=== PATIENT | female | born 1955 | race Hispanic/Latino ===

== ENCOUNTER 2017-06-22 10:05 | Inpatient (IN) | payer BC, OTHER ==
[2017-06-22] VITALS (8 sets, daily range): BP systolic 94–130; BP diastolic 59–75
[2017-06-22 10:30] LABS: APPEARANCE,URINE Clear (CLEAR); BILIRUBIN,URINE Negative (NEGATIVE); COLOR,URINE Yellow (YELLOW); GLUCOSE, URINE (UA) Negative (NEGATIVE); KETONES,URINE Negative (NEGATIVE); LEUKOCYTE ESTERASE ,URINE Trace (NEGATIVE); NITRATE,URINE Negative (NEGATIVE); OCCULT BLOOD,URINE Moderate (NEGATIVE); PROTEIN,URINE POS 2+ (NEGATIVE); UROBILINOGEN,URINE 0.2 mg/dL (0.2-1.0)
[2017-06-22] MEDS ORDERED: SODIUM CHLORIDE 0.9% 1000ML 1,000 ML IV ONE (10:44)
[2017-06-22] MEDS ORDERED: ACETAMINOPHEN 325 MG TAB ONE (10:45)
[2017-06-22] MEDS ORDERED: AMPICILLIN SODIUM/SULBACTAM NA 1.5GM VIAL ONE (10:45)
[2017-06-22] MEDS ORDERED: VANCOMYCIN 1GM+NS 250ML 250 ML IV ONE (10:45)
[2017-06-22 10:48] LABS: HEMATOCRIT 21.2 % (36-48); MEAN CORPUSCULAR HEMOGLOBIN 29.3 pg (27.0-33.0); MEAN CORPUSCULAR HGB CONC 32.2 g/dL (32.0-36.0); MEAN CORPUSCULAR VOLUME 90.8 fL (79-99); PLATELET COUNT (AUTO) 322 K/uL (130-400); RED BLOOD CELL COUNT(AUTO) 2.34 MIL/uL (4.00-5.50); WHITE BLOOD COUNT (AUTO) 25.9 K/uL (4.8-10.8)
[2017-06-22 11:05] LABS: BACTERIA,URINE Rare /HPF (None Seen); MUCUS,URINE Rare LPF (None Seen); SQUAMOUS EPITHELIAL CELL,UR Rare /LPF (0-2)
[2017-06-22 11:20] LABS: BILIRUBIN,TOTAL 0.3 mg/dL (0.2-1.0); CREATINE KINASE MB 8.7 ng/mL (0.5-3.6); POTASSIUM 4.5 mmol/L (3.5-5.1)
[2017-06-22 11:22] LABS: CREATININE 12.9 mg/dL (0.5-1.5); TROPONIN I 1.46 ng/mL (0.00-0.06)
[2017-06-22 11:30] LABS: INR 1.16 (0.85-1.15); PARTIAL THROMBOPLASTIN TIME 31.2 SEC (26.3-35.5); PROTHROMBIN TIME 12.1 SEC (9.6-11.6)
[2017-06-22 11:35] LABS: BASOPHILS % (MANUAL) 1 % (0-2); EOSINOPHILS % (MANUAL) 1 % (1-6); LYMPHOCYTES % (MANUAL) 2 % (22-44); MAN.DIFF COMMENT-IMPRESSION MANUAL DIFFERENTIAL; PLATELET MORPHOLOGY COMMENT ADEQUATE; SEGMENTED NEUTROPHILS % 96 % (40-70)
[2017-06-22] MEDS ORDERED: SODIUM CHLORIDE 0.9% 1000ML 2,000 ML IV ONE (11:59)
[2017-06-22] MEDS ORDERED: ASPIRIN 81MG TAB.CHEW ONE (12:00)
[2017-06-22] MEDS ORDERED: MIDAZOLAM HCL 1 MG/ML 2ML VIAL ONE (12:54)
[2017-06-22] MEDS ORDERED: PROPOFOL 1000 MG/100 ML 100 ML IV ONE ×3 (13:02→23:52)
[2017-06-22] MEDS ORDERED: FENTANYL CITRATE PF 50 MCG/1 ML 2ML VIAL ONE (14:10)
[2017-06-22] MEDS ORDERED: SODIUM BICARB 50MEQ 50ML VIAL ONE (15:09)
[2017-06-22 15:19] LABS: ABG BASE EXCESS -23.5 mmol/L (-2.0-3.0); ABG HCO3 5.9 mmol/L (21.0-28.0); ABG OXYGEN SATURATION 99.3 % (95.0-99.0); ABG PCO2 23 mmHg (32-45)
[2017-06-22] MEDS ORDERED: EPOETIN ALFA 10,000 UNIT/ML VIAL SQ ONE (17:00)
[2017-06-22] MEDS ORDERED: SODIUM BICARB 8.4% 50ML SYRING 150 MEQ in DEXTROSE 5%-WATER 1,000 ML IV SCH (17:00)
[2017-06-22] MEDS: ZOSYN 3.375GM+NS 50ML 50 ML IV SCH (17:08)
[2017-06-22] MEDS: SODIUM BICARB 8.4% 50ML SYRING 150 MEQ in DEXTROSE 5%-WATER 1,000 ML IVP SCH (17:15)
[2017-06-22] MEDS ORDERED: LINEZOLID 600 MG/ISO-OSM 300 ML IV SCH (18:15)
[2017-06-22] MEDS ORDERED: LINEZOLID 600 MG/ISO-OSM 300 ML IV ONE (22:15)
[2017-06-23] VITALS (21 sets, daily range): BP systolic 97–154; BP diastolic 52–83
[2017-06-23] MEDS: SODIUM BICARB 8.4% 50ML SYRING 150 MEQ in DEXTROSE 5%-WATER 1,000 ML IVP SCH ×2 (02:31→14:23)
[2017-06-23 04:39] LABS: CARBON DIOXIDE 14 mmol/L (21-32); CHLORIDE 109 mmol/L (101-111); GLOMERULAR FILTR. RATE CALC 4 mL/min (>60); GLUCOSE,RANDOM 165 mg/dL (70-105); PHOSPHORUS 8.6 mg/dL (2.5-4.9); POTASSIUM 3.5 mmol/L (3.5-5.1); SODIUM SERUM 145 mmol/L (136-145)
[2017-06-23 04:49] LABS: CREATININE 11.4 mg/dL (0.5-1.5); UREA NITROGEN, BLOOD 146 mg/dL (7-18)
[2017-06-23] MEDS: ZOSYN 3.375GM+NS 50ML 50 ML IV SCH ×2 (05:09→17:11)
[2017-06-23] MEDS ORDERED: PROPOFOL 1000 MG/100 ML 100 ML IV ONE ×4 (05:39→22:58)
[2017-06-23 06:11] LABS: MEAN CORPUSCULAR HEMOGLOBIN 30.6 pg (27.0-33.0); MEAN CORPUSCULAR HGB CONC 34.4 g/dL (32.0-36.0); MEAN CORPUSCULAR VOLUME 88.9 fL (79-99); NUCLEATED RED BLOOD CELLS 0.1 % (0.0-0.19); PLATELET COUNT (AUTO) 226 K/uL (130-400); RED BLOOD CELL COUNT(AUTO) 1.58 MIL/uL (4.00-5.50); RED CELL DISTRIBUTION WIDTH 13.5 % (11.0-15.5); WHITE BLOOD COUNT (AUTO) 14.6 K/uL (4.8-10.8)
[2017-06-23] MEDS ORDERED: ACETAMINOPHEN-CODEINE 300/30MG TAB PO PRN ×2 (07:30)
[2017-06-23] MEDS ORDERED: MORPHINE SULFATE 2 MG/ML 1ML SYG IV PRN (07:30)
[2017-06-23] MEDS ORDERED: NITROGLYCERIN 0.4 MG SL TAB SL PRN (07:30)
[2017-06-23] MEDS ORDERED: MORPHINE SULFATE 4 MG/1ML SYG IV PRN (07:30)
[2017-06-23] MEDS ORDERED: MAG HYDROX/AL HYDROX/SIMETH ES 30 ML SUSP UDCUP PO PRN (07:30)
[2017-06-23] MEDS ORDERED: ACETAMINOPHEN 325 MG TAB PO PRN ×2 (07:30)
[2017-06-23] MEDS ORDERED: LACTULOSE 20 GM/30 ML UDCUP PO PRN (07:30)
[2017-06-23] MEDS ORDERED: GUAIFENESIN-DM 200/20 MG 10 ML PO PRN (07:30)
[2017-06-23 07:37] LABS: LYMPHOCYTES % (MANUAL) 2 % (22-44); MAN.DIFF COMMENT-IMPRESSION MANUAL DIFFERENTIAL; MONOCYTES % (MANUAL) 1 % (2-9); SEGMENTED NEUTROPHILS % 97 % (40-70)
[2017-06-23 07:38] LABS: PLATELET MORPHOLOGY COMMENT ADEQUATE
[2017-06-23] MEDS ORDERED: COMPOUND IV MISC 1 EACH IVSOLN MISC PRN (08:15)
[2017-06-23 08:26] LABS: ABG BASE EXCESS -7.2 mmol/L (-2.0-3.0); ABG HCO3 14.7 mmol/L (21.0-28.0); ABG OXYGEN SATURATION 99.9 % (95.0-99.0); ABG PCO2 23 mmHg (32-45)
[2017-06-23] MEDS: FAMOTIDINE/PF 20 MG/2 ML VIAL IV SCH ×2 (08:39→20:09)
[2017-06-23] MEDS: SODIUM CHLORIDE 0.9% 1000ML 1,000 ML IV SCH ×2 (08:39→17:51)
[2017-06-23] MEDS: IRON SUCROSE COMPLEX 100 MG in SODIUM CHLORIDE 0.9% 50 ML IV SCH (08:40)
[2017-06-23] MEDS: INSULIN HUMULIN R 100 UNIT/ML 3ML SQ SCH ×3 (09:09→16:30)
[2017-06-23 10:28] LABS: ALBUMIN 1.3 g/dL (3.5-5.0)
[2017-06-23] MEDS ORDERED: HEPARIN SODIUM 1000UNIT/ML 10ML VIAL ONE (10:55)
[2017-06-23] MEDS ORDERED: LIDOCAINE HCL 1% MDV 50ML VIAL ONE (10:55)
[2017-06-23 11:10] LABS: % IRON SATURATION 33.9 % (22-44)
[2017-06-23] MEDS: IPRATROPIUM/ALBUTEROL SULFATE 3 ML SOLUTION IH SCH ×3 (11:38→23:32)
[2017-06-23] MEDS ORDERED: SODIUM CHLORIDE 0.9% 250 ML IV ONE (15:19)
[2017-06-23] MEDS ORDERED: HEPARIN SODIUM 5000UNIT/ML 1ML VIAL ONE (16:48)
[2017-06-23] MEDS ORDERED: SODIUM BICARB 8.4% 50ML SYRING 150 MEQ in DEXTROSE 5%-WATER 1,000 ML IV SCH (16:55)
[2017-06-23] MEDS ORDERED: NOREPINEPHRINE 4MG/NS 250ML 250 ML IV SCH (17:00)
[2017-06-23] MEDS ORDERED: SODIUM CHLORIDE 0.9% 1000ML 1,000 ML IV PRN (17:15)
[2017-06-23] MEDS ORDERED: ALBUMIN (HUMAN) 25% 100 ML IV PRN (17:15)
[2017-06-23] MEDS ORDERED: HEPARIN SODIUM 5000UNIT/ML 1ML VIAL IJ PRN (17:15)
[2017-06-23] MEDS ORDERED: 0.9% SODIUM CHLORIDE 250 ML IV BAG IV PRN (17:15)
[2017-06-23] MEDS: LINEZOLID 600 MG/ISO-OSM 300 ML IV SCH (17:51)
[2017-06-23] MEDS ORDERED: CEFEPIME 1GM+NS 50ML 50 ML IV SCH (18:30)
[2017-06-23] MEDS ORDERED: PHARMACY COMMUNICATION MISC SCH (18:30)
[2017-06-23] MEDS ORDERED: EPOETIN ALFA 3,000 UNIT/ML ML SQ SCH (19:00)
[2017-06-23] MEDS ORDERED: EPOETIN ALFA 2,000 UNIT/ML VIAL SQ NR (19:00)
[2017-06-23] MEDS: CEFEPIME HCL 1 GM VIAL IVP SCH (20:08)
[2017-06-23] MEDS: SODIUM CHLORIDE 0.9% IV SCH (20:14)
[2017-06-23] MEDS: PENICILLIN POTASSIUM IV SCH (20:14)
[2017-06-23] MEDS: FENTANYL 2500MCG+NS 250ML 250 ML IV PRN (21:24)
[2017-06-23] MEDS ORDERED: PROPOFOL 1000 MG/100 ML IV PRN (23:15)
[2017-06-24] VITALS (24 sets, daily range): BP systolic 109–139; BP diastolic 55–88
[2017-06-24] MEDS: SODIUM CHLORIDE 0.9% 1000ML 1,000 ML IV SCH ×2 (00:15→13:28)
[2017-06-24] MEDS: SODIUM BICARB 8.4% 50ML SYRING 150 MEQ in DEXTROSE 5%-WATER 1,000 ML IVP SCH (00:16)
[2017-06-24] MEDS: PENICILLIN POTASSIUM IV SCH ×3 (03:32→19:56)
[2017-06-24] MEDS: SODIUM CHLORIDE 0.9% IV SCH ×3 (03:32→19:56)
[2017-06-24] MEDS: LINEZOLID 600 MG/ISO-OSM 300 ML IV SCH ×2 (04:57→17:15)
[2017-06-24] MEDS: INSULIN HUMULIN R 100 UNIT/ML 3ML SQ SCH ×4 (06:00→18:00)
[2017-06-24] MEDS: IPRATROPIUM/ALBUTEROL SULFATE 3 ML SOLUTION IH SCH ×3 (06:15→18:40)
[2017-06-24] MEDS: PROPOFOL 1000 MG/100 ML 100 ML IV PRN ×2 (06:19→15:21)
[2017-06-24 08:13] LABS: BASOPHILS % (AUTO) 0.4 % (0.0-5.0); EOSINOPHILS % (AUTO) 1.4 % (0.0-8.0); HEMATOCRIT 22.2 % (36-48); LYMPHOCYTES % (AUTO) 3.6 % (21.0-51.0); MEAN CORPUSCULAR HEMOGLOBIN 30.6 pg (27.0-33.0); MEAN CORPUSCULAR HGB CONC 35.8 g/dL (32.0-36.0); MEAN CORPUSCULAR VOLUME 85.4 fL (79-99); MONOCYTES % (AUTO) 5.3 % (3.0-13.0); NEUTROPHILS % (AUTO) 89.3 % (40.0-77.0); NUCLEATED RED BLOOD CELLS 1.9 % (0.0-0.19); PLATELET COUNT (AUTO) 196 K/uL (130-400); RED CELL DISTRIBUTION WIDTH 14.6 % (11.0-15.5); WHITE BLOOD COUNT (AUTO) 11.8 K/uL (4.8-10.8)
[2017-06-24 08:25] LABS: ABG BASE EXCESS 9.2 mmol/L (-2.0-3.0); ABG HCO3 28.4 mmol/L (21.0-28.0); ABG OXYGEN SATURATION 96.8 % (95.0-99.0); ABG PCO2 25 mmHg (32-45)
[2017-06-24 08:26] LABS: CREATININE 6.8 mg/dL (0.5-1.5)
[2017-06-24 08:46] LABS: POTASSIUM 2.7 mmol/L (3.5-5.1)
[2017-06-24] MEDS: IRON SUCROSE COMPLEX 100 MG in SODIUM CHLORIDE 0.9% 50 ML IV SCH (09:58)
[2017-06-24] MEDS: FAMOTIDINE/PF 20 MG/2 ML VIAL IV SCH ×2 (09:58→21:45)
[2017-06-24] MEDS ORDERED: SODIUM CHLORIDE 0.9% IV SCH (11:25)
[2017-06-24] MEDS ORDERED: PENICILLIN POTASSIUM IV SCH (11:25)
[2017-06-24] MEDS ORDERED: EPOETIN ALFA 3,000 UNIT/ML ML SQ SCH (15:01)
[2017-06-24] MEDS: EPOETIN ALFA 3,000 UNIT/ML ML SQ SCH (15:28)
[2017-06-24] MEDS: CEFEPIME HCL 1 GM VIAL IVP SCH (21:45)
[2017-06-25] VITALS (24 sets, daily range): BP systolic 103–155; BP diastolic 52–84
[2017-06-25] MEDS: PROPOFOL 1000 MG/100 ML 100 ML IV PRN ×3 (00:02→16:34)
[2017-06-25] MEDS: IPRATROPIUM/ALBUTEROL SULFATE 3 ML SOLUTION IH SCH ×5 (01:10→23:44)
[2017-06-25] MEDS: SODIUM CHLORIDE 0.9% IV SCH ×3 (03:20→20:41)
[2017-06-25] MEDS: PENICILLIN POTASSIUM IV SCH ×3 (03:20→20:41)
[2017-06-25 03:58] LABS: HEMATOCRIT 23.9 % (36-48); MEAN CORPUSCULAR HEMOGLOBIN 31.2 pg (27.0-33.0); MEAN CORPUSCULAR HGB CONC 36.2 g/dL (32.0-36.0); MEAN CORPUSCULAR VOLUME 86.2 fL (79-99); PLATELET COUNT (AUTO) 184 K/uL (130-400); RED BLOOD CELL COUNT(AUTO) 2.77 MIL/uL (4.00-5.50); RED CELL DISTRIBUTION WIDTH 15.2 % (11.0-15.5); WHITE BLOOD COUNT (AUTO) 12.4 K/uL (4.8-10.8)
[2017-06-25 04:12] LABS: ALBUMIN 1.2 g/dL (3.5-5.0); BILIRUBIN,TOTAL 0.3 mg/dL (0.2-1.0); CREATININE 5.3 mg/dL (0.5-1.5); MAGNESIUM 1.4 mg/dL (1.80-2.40); PHOSPHORUS 5.4 mg/dL (2.5-4.9); POTASSIUM 3.6 mmol/L (3.5-5.1); TOTAL PROTEIN, SERUM 4.3 g/dL (6.0-8.3)
[2017-06-25 04:16] LABS: BAND NEUTROPHILS % (MANUAL) 6 % (0-2); EOSINOPHILS % (MANUAL) 3 % (1-6); LYMPHOCYTES % (MANUAL) 4 % (22-44); MAN.DIFF COMMENT-IMPRESSION MANUAL DIFFERENTIAL; MONOCYTES % (MANUAL) 8 % (2-9); PLATELET MORPHOLOGY COMMENT ADEQUATE; SEGMENTED NEUTROPHILS % 79 % (40-70)
[2017-06-25] MEDS: LINEZOLID 600 MG/ISO-OSM 300 ML IV SCH ×2 (05:40→18:16)
[2017-06-25] MEDS: INSULIN HUMULIN R 100 UNIT/ML 3ML SQ SCH ×4 (06:00→18:00)
[2017-06-25] MEDS ORDERED: MAGNESIUM 2GM PREMIX 50ML 50 ML IV SCH (07:45)
[2017-06-25] MEDS: FAMOTIDINE/PF 20 MG/2 ML VIAL IV SCH ×2 (09:03→20:42)
[2017-06-25] MEDS: IRON SUCROSE COMPLEX 100 MG in SODIUM CHLORIDE 0.9% 50 ML IV SCH (09:04)
[2017-06-25 12:08] LABS: HEPATITIS Bs ANTIGEN SCREEN P Negative (Negative)
[2017-06-25] MEDS: EPOETIN ALFA 3,000 UNIT/ML ML SQ SCH (12:26)
[2017-06-25] MEDS ORDERED: WATER FOR INJECTION,STERILE 20 ML VIAL ONE (20:39)
[2017-06-25] MEDS: CEFEPIME HCL 1 GM VIAL IVP SCH (20:42)
[2017-06-26] VITALS (24 sets, daily range): BP systolic 97–130; BP diastolic 54–80
[2017-06-26] MEDS: PROPOFOL 1000 MG/100 ML 100 ML IV PRN ×2 (00:52→09:51)
[2017-06-26] MEDS: PENICILLIN POTASSIUM IV SCH ×2 (02:58→13:03)
[2017-06-26] MEDS: SODIUM CHLORIDE 0.9% IV SCH ×2 (02:58→13:03)
[2017-06-26 04:10] LABS: MEAN CORPUSCULAR HEMOGLOBIN 28.3 pg (27.0-33.0); MEAN CORPUSCULAR HGB CONC 32.2 g/dL (32.0-36.0); MEAN CORPUSCULAR VOLUME 88.1 fL (79-99); PLATELET COUNT (AUTO) 172 K/uL (130-400); RED BLOOD CELL COUNT(AUTO) 2.95 MIL/uL (4.00-5.50); RED CELL DISTRIBUTION WIDTH 15.5 % (11.0-15.5); WHITE BLOOD COUNT (AUTO) 11.7 K/uL (4.8-10.8)
[2017-06-26 04:18] LABS: CREATININE 5.8 mg/dL (0.5-1.5)
[2017-06-26] MEDS: INSULIN HUMULIN R 100 UNIT/ML 3ML SQ SCH ×4 (06:00→18:00)
[2017-06-26] MEDS ORDERED: ALBUMIN (HUMAN) 25% 100 ML IV PRN (06:30)
[2017-06-26] MEDS ORDERED: 0.9% SODIUM CHLORIDE 250 ML IV BAG IV PRN (06:30)
[2017-06-26] MEDS: IPRATROPIUM/ALBUTEROL SULFATE 3 ML SOLUTION IH SCH ×4 (06:44→23:55)
[2017-06-26] MEDS: IRON SUCROSE COMPLEX 100 MG in SODIUM CHLORIDE 0.9% 50 ML IV SCH (08:21)
[2017-06-26] MEDS: FAMOTIDINE/PF 20 MG/2 ML VIAL IV SCH ×2 (08:21→20:35)
[2017-06-26] MEDS: LINEZOLID 600 MG/ISO-OSM 300 ML IV SCH (08:21)
[2017-06-26] MEDS ORDERED: PHARMACY COMMUNICATION MISC SCH (08:45)
[2017-06-26] MEDS ORDERED: COMPOUND IV MISC 1 EACH IVSOLN MISC PRN (12:00)
[2017-06-26] MEDS ORDERED: COMPOUND IV REFRIGERATED 1 EACH IVSOLN MISC PRN (13:30)
[2017-06-26] MEDS ORDERED: CEFAZOLIN 2GM / 50 ML 50 ML IV SCH (14:45)
[2017-06-26] MEDS ORDERED: EPOETIN ALFA 10,000 UNIT/ML VIAL SQ SCH (15:00)
[2017-06-26] MEDS: CEFAZOLIN SODIUM 1 GM VIAL IVP SCH (17:09)
[2017-06-26] MEDS: WATER FOR INJECTION,STERILE 20 ML VIAL IJ SCH (17:10)
[2017-06-27] VITALS (29 sets, daily range): BP systolic 74–142; BP diastolic 45–88
[2017-06-27] MEDS: PROPOFOL 1000 MG/100 ML 100 ML IV PRN (03:04)
[2017-06-27 04:17] LABS: HEMATOCRIT 25.1 % (36-48); MEAN CORPUSCULAR HEMOGLOBIN 30.1 pg (27.0-33.0); MEAN CORPUSCULAR HGB CONC 34.1 g/dL (32.0-36.0); MEAN CORPUSCULAR VOLUME 88.3 fL (79-99); PLATELET COUNT (AUTO) 154 K/uL (130-400); RED BLOOD CELL COUNT(AUTO) 2.84 MIL/uL (4.00-5.50); RED CELL DISTRIBUTION WIDTH 15.3 % (11.0-15.5); WHITE BLOOD COUNT (AUTO) 11.5 K/uL (4.8-10.8)
[2017-06-27 04:24] LABS: INR 1.02 (0.85-1.15); PROTHROMBIN TIME 10.7 SEC (9.6-11.6)
[2017-06-27 04:25] LABS: CREATININE 6.3 mg/dL (0.5-1.5); POTASSIUM 3.9 mmol/L (3.5-5.1)
[2017-06-27] MEDS: WATER FOR INJECTION,STERILE 20 ML VIAL IJ SCH ×2 (05:08→18:10)
[2017-06-27] MEDS: CEFAZOLIN SODIUM 1 GM VIAL IVP SCH ×2 (05:08→18:10)
[2017-06-27] MEDS: INSULIN HUMULIN R 100 UNIT/ML 3ML SQ SCH ×4 (06:00→18:00)
[2017-06-27] MEDS: IPRATROPIUM/ALBUTEROL SULFATE 3 ML SOLUTION IH SCH ×4 (06:13→23:25)
[2017-06-27] MEDS: SODIUM CHLORIDE 0.9% 1000ML 1,000 ML IV PRN (06:32)
[2017-06-27] MEDS: FAMOTIDINE/PF 20 MG/2 ML VIAL IV SCH ×2 (09:38→21:08)
[2017-06-27] MEDS: IRON SUCROSE COMPLEX 100 MG in SODIUM CHLORIDE 0.9% 50 ML IV SCH (09:38)
[2017-06-27] MEDS ORDERED: LIDOCAINE 1%-EPI 1:100,000 20 ML VIAL IJ ONE ×2 (10:53→12:24)
[2017-06-27] MEDS ORDERED: EPHEDRINE SULFATE 50 MG/ML AMPULE ONE (12:52)
[2017-06-27] MEDS ORDERED: FENTANYL CITRATE PF 50 MCG/1 ML 2ML VIAL ONE (13:06)
[2017-06-27 14:32] LABS: HEMATOCRIT 25.3 % (36-48); MEAN CORPUSCULAR HGB CONC 33.7 g/dL (32.0-36.0); MEAN CORPUSCULAR VOLUME 88.8 fL (79-99); PLATELET COUNT (AUTO) 155 K/uL (130-400); RED BLOOD CELL COUNT(AUTO) 2.84 MIL/uL (4.00-5.50); RED CELL DISTRIBUTION WIDTH 15.4 % (11.0-15.5); WHITE BLOOD COUNT (AUTO) 12.7 K/uL (4.8-10.8)
[2017-06-27 14:40] LABS: CREATININE 4.5 mg/dL (0.5-1.5)
[2017-06-27 16:32] LABS: BAND NEUTROPHILS % (MANUAL) 1 % (0-2); EOSINOPHILS % (MANUAL) 2 % (1-6); LYMPHOCYTES % (MANUAL) 6 % (22-44); MONOCYTES % (MANUAL) 3 % (2-9); SEGMENTED NEUTROPHILS % 88 % (40-70)
[2017-06-27 16:36] LABS: MAN.DIFF COMMENT-IMPRESSION MANUAL DIFFERENTIAL
[2017-06-27 16:50] LABS: PLATELET MORPHOLOGY COMMENT PLT CLUMPS PRESENT
[2017-06-27 17:32] LABS: HEMATOCRIT 22.2 % (36-48); MEAN CORPUSCULAR HEMOGLOBIN 29.5 pg (27.0-33.0); MEAN CORPUSCULAR HGB CONC 33.1 g/dL (32.0-36.0); MEAN CORPUSCULAR VOLUME 89.2 fL (79-99); PLATELET COUNT (AUTO) 198 K/uL (130-400); RED BLOOD CELL COUNT(AUTO) 2.49 MIL/uL (4.00-5.50); RED CELL DISTRIBUTION WIDTH 15.4 % (11.0-15.5); WHITE BLOOD COUNT (AUTO) 23.5 K/uL (4.8-10.8)
[2017-06-27] MEDS ORDERED: MICROFIBRILLAR COLLAGEN 1 GM PACKAGE TP ONE (17:36)
[2017-06-27 17:43] LABS: INR 1.02 (0.85-1.15); PROTHROMBIN TIME 10.7 SEC (9.6-11.6)
[2017-06-27 17:44] LABS: CREATININE 4.3 mg/dL (0.5-1.5); POTASSIUM 4.2 mmol/L (3.5-5.1)
[2017-06-27 17:48] LABS: MAGNESIUM 1.9 mg/dL (1.80-2.40); PHOSPHORUS 6.4 mg/dL (2.5-4.9)
[2017-06-27] MEDS ORDERED: FENTANYL 2500MCG+NS 250ML 250 ML IV PRN (18:00)
[2017-06-27] MEDS: FENTANYL 2500MCG+NS 250ML 250 ML IV PRN (18:11)
[2017-06-27 18:43] LABS: BAND NEUTROPHILS % (MANUAL) 4 % (0-2); EOSINOPHILS % (MANUAL) 1 % (1-6); LYMPHOCYTES % (MANUAL) 5 % (22-44); MAN.DIFF COMMENT-IMPRESSION MANUAL DIFFERENTIAL; MONOCYTES % (MANUAL) 3 % (2-9); SEGMENTED NEUTROPHILS % 87 % (40-70)
[2017-06-27 19:40] LABS: INR 1.08 (0.85-1.15); PARTIAL THROMBOPLASTIN TIME 31.9 SEC (26.3-35.5); PROTHROMBIN TIME 11.3 SEC (9.6-11.6)
[2017-06-27] MEDS ORDERED: EPINEPHRINE 1 MG/ML 30ML VIAL IJ ONE (19:48)
[2017-06-27] MEDS ORDERED: PROPOFOL 10 MG/ML 20ML VIAL IV ONE (20:25)
[2017-06-27] MEDS: MIDAZOLAM 100MG-0.9% NS 100ML 100 ML IV PRN (21:07)
[2017-06-27] MEDS: EPOETIN ALFA 3,000 UNIT/ML ML SQ SCH (22:08)
[2017-06-28] VITALS (21 sets, daily range): BP systolic 95–150; BP diastolic 48–68
[2017-06-28] MEDS: CEFAZOLIN SODIUM 1 GM VIAL IVP SCH ×2 (05:15→17:38)
[2017-06-28] MEDS: WATER FOR INJECTION,STERILE 20 ML VIAL IJ SCH ×2 (05:15→17:38)
[2017-06-28 05:19] LABS: HEMATOCRIT 21.9 % (36-48); MEAN CORPUSCULAR HEMOGLOBIN 29.3 pg (27.0-33.0); MEAN CORPUSCULAR HGB CONC 33.2 g/dL (32.0-36.0); MEAN CORPUSCULAR VOLUME 88.4 fL (79-99); PLATELET COUNT (AUTO) 137 K/uL (130-400); RED BLOOD CELL COUNT(AUTO) 2.48 MIL/uL (4.00-5.50); RED CELL DISTRIBUTION WIDTH 14.7 % (11.0-15.5); WHITE BLOOD COUNT (AUTO) 16.5 K/uL (4.8-10.8)
[2017-06-28 05:40] LABS: CREATININE 4.7 mg/dL (0.5-1.5); POTASSIUM 4.5 mmol/L (3.5-5.1)
[2017-06-28] MEDS: INSULIN HUMULIN R 100 UNIT/ML 3ML SQ SCH ×4 (06:00→18:00)
[2017-06-28] MEDS: IPRATROPIUM/ALBUTEROL SULFATE 3 ML SOLUTION IH SCH ×3 (06:43→19:16)
[2017-06-28] MEDS: IRON SUCROSE COMPLEX 100 MG in SODIUM CHLORIDE 0.9% 50 ML IV SCH (08:50)
[2017-06-28] MEDS: FAMOTIDINE/PF 20 MG/2 ML VIAL IV SCH ×2 (08:50→20:47)
[2017-06-28] MEDS: EPOETIN ALFA 2,000 UNIT/ML VIAL SQ SCH (13:37)
[2017-06-28] MEDS: EPOETIN ALFA 3,000 UNIT/ML ML SQ SCH (13:37)
[2017-06-29] VITALS (23 sets, daily range): BP systolic 108–151; BP diastolic 51–86
[2017-06-29] MEDS: IPRATROPIUM/ALBUTEROL SULFATE 3 ML SOLUTION IH SCH ×4 (00:46→18:35)
[2017-06-29] MEDS: MIDAZOLAM 100MG-0.9% NS 100ML 100 ML IV PRN (02:03)
[2017-06-29 04:06] LABS: MEAN CORPUSCULAR HEMOGLOBIN 31.6 pg (27.0-33.0); MEAN CORPUSCULAR VOLUME 90.3 fL (79-99); PLATELET COUNT (AUTO) 127 K/uL (130-400); RED BLOOD CELL COUNT(AUTO) 1.96 MIL/uL (4.00-5.50); RED CELL DISTRIBUTION WIDTH 14.9 % (11.0-15.5); WHITE BLOOD COUNT (AUTO) 8.7 K/uL (4.8-10.8)
[2017-06-29 04:11] LABS: HEMATOCRIT 17.7 % (36-48); INR 1.02 (0.85-1.15); PARTIAL THROMBOPLASTIN TIME 27.8 SEC (26.3-35.5); PROTHROMBIN TIME 10.7 SEC (9.6-11.6)
[2017-06-29 04:19] LABS: CREATININE 5.7 mg/dL (0.5-1.5); POTASSIUM 4.2 mmol/L (3.5-5.1)
[2017-06-29 05:03] LABS: BAND NEUTROPHILS % (MANUAL) 14 % (0-2); EOSINOPHILS % (MANUAL) 1 % (1-6); LYMPHOCYTES % (MANUAL) 13 % (22-44); MAN.DIFF COMMENT-IMPRESSION MANUAL DIFFERENTIAL; MONOCYTES % (MANUAL) 5 % (2-9); SEGMENTED NEUTROPHILS % 67 % (40-70)
[2017-06-29 05:04] LABS: PLATELET MORPHOLOGY COMMENT SLIGHTLY DECREASED
[2017-06-29] MEDS: CEFAZOLIN SODIUM 1 GM VIAL IVP SCH ×2 (05:16→17:50)
[2017-06-29] MEDS: WATER FOR INJECTION,STERILE 20 ML VIAL IJ SCH ×2 (05:16→17:50)
[2017-06-29] MEDS: INSULIN HUMULIN R 100 UNIT/ML 3ML SQ SCH ×4 (06:00→18:00)
[2017-06-29] MEDS ORDERED: DEXTROSE 50%-WATER 50 ML DISP.SYRIN IV ONE (06:04)
[2017-06-29] MEDS: FAMOTIDINE/PF 20 MG/2 ML VIAL IV SCH (08:45)
[2017-06-29] MEDS: IRON SUCROSE COMPLEX 100 MG in SODIUM CHLORIDE 0.9% 50 ML IV SCH (08:46)
[2017-06-29] MEDS ORDERED: LIDOCAINE HCL 1% MDV 50ML VIAL ONE (10:16)
[2017-06-29] MEDS ORDERED: HEPARIN SODIUM 1000UNIT/ML 10ML VIAL ONE (10:16)
[2017-06-29] MEDS: HEPARIN SODIUM 5000UNIT/ML 1ML VIAL IJ PRN (14:29)
[2017-06-29] MEDS: SODIUM CHLORIDE 0.9% 1000ML 1,000 ML IV PRN (14:30)
[2017-06-29] MEDS: EPOETIN ALFA 3,000 UNIT/ML ML SQ SCH (20:45)
[2017-06-29] MEDS: EPOETIN ALFA 2,000 UNIT/ML VIAL SQ SCH (20:45)
[2017-06-30] VITALS (22 sets, daily range): BP systolic 110–201; BP diastolic 59–112
[2017-06-30] MEDS: IPRATROPIUM/ALBUTEROL SULFATE 3 ML SOLUTION IH SCH ×4 (00:13→19:08)
[2017-06-30] MEDS: MIDAZOLAM 100MG-0.9% NS 100ML 100 ML IV PRN (04:30)
[2017-06-30] MEDS: WATER FOR INJECTION,STERILE 20 ML VIAL IJ SCH ×2 (04:31→16:14)
[2017-06-30] MEDS: CEFAZOLIN SODIUM 1 GM VIAL IVP SCH ×2 (04:31→16:14)
[2017-06-30 05:18] LABS: HEMATOCRIT 26.3 % (36-48); MEAN CORPUSCULAR HEMOGLOBIN 30.1 pg (27.0-33.0); MEAN CORPUSCULAR HGB CONC 34.1 g/dL (32.0-36.0); MEAN CORPUSCULAR VOLUME 88.3 fL (79-99); PLATELET COUNT (AUTO) 144 K/uL (130-400); RED BLOOD CELL COUNT(AUTO) 2.98 MIL/uL (4.00-5.50); RED CELL DISTRIBUTION WIDTH 14.1 % (11.0-15.5); WHITE BLOOD COUNT (AUTO) 7.5 K/uL (4.8-10.8)
[2017-06-30 05:43] LABS: CREATININE 4.2 mg/dL (0.5-1.5); POTASSIUM 3.5 mmol/L (3.5-5.1)
[2017-06-30] MEDS: INSULIN HUMULIN R 100 UNIT/ML 3ML SQ SCH ×4 (06:00→18:00)
[2017-06-30] MEDS: EPOETIN ALFA 2,000 UNIT/ML VIAL SQ SCH (07:40)
[2017-06-30] MEDS: EPOETIN ALFA 3,000 UNIT/ML ML SQ SCH (07:41)
[2017-06-30] MEDS: FAMOTIDINE/PF 20 MG/2 ML VIAL IV SCH (08:45)
[2017-06-30] MEDS: IRON SUCROSE COMPLEX 100 MG in SODIUM CHLORIDE 0.9% 50 ML IV SCH (08:46)
[2017-06-30] MEDS: ONDANSETRON HCL 4 MG/2 ML VIAL IV PRN (16:14)
[2017-06-30] MEDS: HYDRALAZINE HCL 20 MG/ML VIAL IV PRN (16:14)
[2017-07-01] VITALS (29 sets, daily range): BP systolic 89–169; BP diastolic 42–88
[2017-07-01] MEDS: ONDANSETRON HCL 4 MG/2 ML VIAL IV PRN ×2 (00:05→06:10)
[2017-07-01] MEDS: HYDRALAZINE HCL 20 MG/ML VIAL IV PRN (00:05)
[2017-07-01] MEDS: IPRATROPIUM/ALBUTEROL SULFATE 3 ML SOLUTION IH SCH ×4 (00:31→17:47)
[2017-07-01] MEDS: WATER FOR INJECTION,STERILE 20 ML VIAL IJ SCH ×2 (05:00→16:34)
[2017-07-01] MEDS: CEFAZOLIN SODIUM 1 GM VIAL IVP SCH ×2 (05:17→16:35)
[2017-07-01] MEDS: INSULIN HUMULIN R 100 UNIT/ML 3ML SQ SCH ×4 (05:37→16:56)
[2017-07-01 06:06] LABS: MEAN CORPUSCULAR HEMOGLOBIN 31.7 pg (27.0-33.0); MEAN CORPUSCULAR HGB CONC 35.3 g/dL (32.0-36.0); MEAN CORPUSCULAR VOLUME 89.9 fL (79-99); PLATELET COUNT (AUTO) 166 K/uL (130-400); RED BLOOD CELL COUNT(AUTO) 2.29 MIL/uL (4.00-5.50); RED CELL DISTRIBUTION WIDTH 14.3 % (11.0-15.5)
[2017-07-01 06:07] LABS: HEMATOCRIT 20.6 % (36-48)
[2017-07-01 06:15] LABS: CREATININE 5.2 mg/dL (0.5-1.5); POTASSIUM 3.6 mmol/L (3.5-5.1)
[2017-07-01] MEDS ORDERED: PANTOPRAZOLE 40 MG/VIAL IVP SCH ×2 (07:45)
[2017-07-01] MEDS ORDERED: PANTOPRAZOLE SODIUM 80 MG in SODIUM CHLORIDE 0.9% 100 ML IV SCH (07:45)
[2017-07-01 08:14] LABS: HEMATOCRIT 20.7 % (36-48)
[2017-07-01 08:17] LABS: INR 1.23 (0.85-1.15); PARTIAL THROMBOPLASTIN TIME 44.9 SEC (26.3-35.5); PROTHROMBIN TIME 12.9 SEC (9.6-11.6)
[2017-07-01] MEDS: FAMOTIDINE/PF 20 MG/2 ML VIAL IV SCH (08:41)
[2017-07-01] MEDS: METOCLOPRAMIDE 10 MG/2 ML VIAL IVP SCH ×3 (08:41→16:35)
[2017-07-01] MEDS: PANTOPRAZOLE SODIUM 80 MG in SODIUM CHLORIDE 0.9% 100 ML IV SCH ×2 (08:41→16:34)
[2017-07-01] MEDS: IRON SUCROSE COMPLEX 100 MG in SODIUM CHLORIDE 0.9% 50 ML IV SCH (08:41)
[2017-07-01] MEDS: EPOETIN ALFA 3,000 UNIT/ML ML SQ SCH (15:01)
[2017-07-01] MEDS: EPOETIN ALFA 2,000 UNIT/ML VIAL SQ SCH (15:01)
[2017-07-01 16:11] LABS: HEMATOCRIT 19.2 % (36-48)
[2017-07-01] MEDS ORDERED: PEG 3350/NA SULF,BICARB,CL/KCL 4000 ML SOLN PO SCH (16:30)
[2017-07-01 21:35] LABS: HEMATOCRIT 17.7 % (36-48)
[2017-07-02] VITALS (24 sets, daily range): BP systolic 128–201; BP diastolic 64–104
[2017-07-02] MEDS: IPRATROPIUM/ALBUTEROL SULFATE 3 ML SOLUTION IH SCH ×4 (00:16→17:39)
[2017-07-02] MEDS: SODIUM CHLORIDE 0.9% 1000ML 1,000 ML IV PRN (01:57)
[2017-07-02 03:56] LABS: HEMATOCRIT 23.1 % (36-48); MEAN CORPUSCULAR HEMOGLOBIN 30.2 pg (27.0-33.0); MEAN CORPUSCULAR HGB CONC 34.3 g/dL (32.0-36.0); MEAN CORPUSCULAR VOLUME 88.1 fL (79-99); PLATELET COUNT (AUTO) 177 K/uL (130-400); RED BLOOD CELL COUNT(AUTO) 2.62 MIL/uL (4.00-5.50); RED CELL DISTRIBUTION WIDTH 14.5 % (11.0-15.5); WHITE BLOOD COUNT (AUTO) 9.5 K/uL (4.8-10.8)
[2017-07-02 03:58] LABS: POTASSIUM 3.4 mmol/L (3.5-5.1)
[2017-07-02 04:08] LABS: INR 2.37 (0.85-1.15); PARTIAL THROMBOPLASTIN TIME 36.9 SEC (26.3-35.5); PROTHROMBIN TIME 24.5 SEC (9.6-11.6)
[2017-07-02] MEDS: WATER FOR INJECTION,STERILE 20 ML VIAL IJ SCH ×2 (04:23→16:40)
[2017-07-02] MEDS: HYDRALAZINE HCL 20 MG/ML VIAL IV PRN (04:23)
[2017-07-02] MEDS: CEFAZOLIN SODIUM 1 GM VIAL IVP SCH ×2 (04:23→16:40)
[2017-07-02] MEDS: INSULIN HUMULIN R 100 UNIT/ML 3ML SQ SCH ×4 (06:00→16:40)
[2017-07-02] MEDS ORDERED: PHYTONADIONE 10 MG/1 ML AMP SQ SCH (07:00)
[2017-07-02] MEDS ORDERED: PHYTONADIONE 10 MG/1 ML AMP IV SCH (09:00)
[2017-07-02] MEDS: FAMOTIDINE/PF 20 MG/2 ML VIAL IV SCH (09:00)
[2017-07-02] MEDS: PHYTONADIONE 10 MG in SODIUM CHLORIDE 0.9% 50 ML SQ SCH (09:39)
[2017-07-02] MEDS: METOCLOPRAMIDE 10 MG/2 ML VIAL IVP SCH ×3 (09:44→16:40)
[2017-07-02] MEDS ORDERED: PROPOFOL 10 MG/ML 20ML VIAL IV ONE ×2 (11:21→11:22)
[2017-07-02 21:40] LABS: HEMATOCRIT 19.6 % (36-48)
[2017-07-03] VITALS (23 sets, daily range): BP systolic 120–187; BP diastolic 62–95
[2017-07-03] MEDS: HYDRALAZINE HCL 20 MG/ML VIAL IV PRN ×2 (00:27→05:48)
[2017-07-03] MEDS: IPRATROPIUM/ALBUTEROL SULFATE 3 ML SOLUTION IH SCH ×5 (01:17→23:35)
[2017-07-03 05:13] LABS: HEMATOCRIT 25.2 % (36-48); MEAN CORPUSCULAR HEMOGLOBIN 30.8 pg (27.0-33.0); MEAN CORPUSCULAR HGB CONC 34.5 g/dL (32.0-36.0); MEAN CORPUSCULAR VOLUME 89.5 fL (79-99); NUCLEATED RED BLOOD CELLS 0.2 % (0.0-0.19); PLATELET COUNT (AUTO) 174 K/uL (130-400); RED BLOOD CELL COUNT(AUTO) 2.81 MIL/uL (4.00-5.50); RED CELL DISTRIBUTION WIDTH 14.4 % (11.0-15.5); WHITE BLOOD COUNT (AUTO) 6.8 K/uL (4.8-10.8)
[2017-07-03 05:22] LABS: INR 1.1 (0.85-1.15); PARTIAL THROMBOPLASTIN TIME 29.7 SEC (26.3-35.5); PROTHROMBIN TIME 11.5 SEC (9.6-11.6)
[2017-07-03] MEDS: WATER FOR INJECTION,STERILE 20 ML VIAL IJ SCH ×2 (05:43→18:16)
[2017-07-03] MEDS: CEFAZOLIN SODIUM 1 GM VIAL IVP SCH ×2 (05:43→18:16)
[2017-07-03] MEDS: METOCLOPRAMIDE 10 MG/2 ML VIAL IVP SCH ×3 (05:48→18:06)
[2017-07-03] MEDS: INSULIN HUMULIN R 100 UNIT/ML 3ML SQ SCH ×4 (06:00→18:00)
[2017-07-03 06:14] LABS: CREATININE 5.2 mg/dL (0.5-1.5)
[2017-07-03 07:25] LABS: HEMATOCRIT 25.3 % (36-48)
[2017-07-03] MEDS ORDERED: POTASSIUM CHLORIDE 20 MEQ ERTAB PO SCH (09:00)
[2017-07-03] MEDS: FAMOTIDINE/PF 20 MG/2 ML VIAL IV SCH (09:06)
[2017-07-03] MEDS: AMLODIPINE BESYLATE 5 MG TAB PO SCH (09:06)
[2017-07-03] MEDS: LISINOPRIL 20 MG TABLET PO SCH (09:07)
[2017-07-03] MEDS: PANTOPRAZOLE SODIUM 80 MG in SODIUM CHLORIDE 0.9% 100 ML IV SCH (09:21)
[2017-07-03] MEDS: PHYTONADIONE 10 MG in SODIUM CHLORIDE 0.9% 50 ML SQ SCH (09:40)
[2017-07-03] MEDS ORDERED: GLYCOPYRROLATE 0.2 MG/ML 5 ML VIAL ONE (15:08)
[2017-07-03] MEDS ORDERED: LIDOCAINE PF 2% 5ML ABBOJECT ONE (15:08)
[2017-07-03] MEDS ORDERED: PROPOFOL 10 MG/ML 20ML VIAL IV ONE (15:08)
[2017-07-03] MEDS ORDERED: ONDANSETRON HCL 4 MG/2 ML VIAL ONE (15:08)
[2017-07-03] MEDS ORDERED: SUCCINYLCHOLINE 200MG/10ML SYR ONE (15:08)
[2017-07-03] MEDS ORDERED: DEXAMETHASONE SOD PHOSPHATE 10MG/ML 1ML VIAL ONE (15:08)
[2017-07-03] MEDS ORDERED: MIDAZOLAM HCL 1 MG/ML 2ML VIAL ONE (15:08)
[2017-07-03] MEDS ORDERED: FENTANYL CITRATE PF 50 MCG/1 ML 2ML VIAL ONE ×2 (15:09→16:54)
[2017-07-03] MEDS ORDERED: FENTANYL CITRATE PF 50 MCG/1 ML 2ML VIAL IVP SCH (15:15)
[2017-07-03] MEDS ORDERED: LIDOCAINE 1%-EPI 1:100,000 20 ML VIAL IJ ONE (15:30)
[2017-07-04] VITALS (19 sets, daily range): BP systolic 102–173; BP diastolic 45–96
[2017-07-04 04:04] LABS: HEMATOCRIT 24.3 % (36-48); MEAN CORPUSCULAR VOLUME 90.8 fL (79-99); PLATELET COUNT (AUTO) 201 K/uL (130-400); RED BLOOD CELL COUNT(AUTO) 2.68 MIL/uL (4.00-5.50); RED CELL DISTRIBUTION WIDTH 15.2 % (11.0-15.5); WHITE BLOOD COUNT (AUTO) 5.6 K/uL (4.8-10.8)
[2017-07-04 04:18] LABS: CREATININE 5.9 mg/dL (0.5-1.5); POTASSIUM 3.4 mmol/L (3.5-5.1)
[2017-07-04] MEDS: WATER FOR INJECTION,STERILE 20 ML VIAL IJ SCH ×2 (04:30→16:52)
[2017-07-04] MEDS: CEFAZOLIN SODIUM 1 GM VIAL IVP SCH ×2 (04:30→16:52)
[2017-07-04] MEDS: INSULIN HUMULIN R 100 UNIT/ML 3ML SQ SCH ×4 (05:39→18:16)
[2017-07-04] MEDS: METOCLOPRAMIDE 10 MG/2 ML VIAL IVP SCH ×3 (05:39→16:52)
[2017-07-04] MEDS: IPRATROPIUM/ALBUTEROL SULFATE 3 ML SOLUTION IH SCH ×3 (07:21→18:56)
[2017-07-04] MEDS ORDERED: PANTOPRAZOLE SODIUM 40 MG TABLET.DR PO SCH (09:00)
[2017-07-04] MEDS: SODIUM CHLORIDE 0.9% 1000ML 1,000 ML IV PRN (09:38)
[2017-07-04] MEDS: HEPARIN SODIUM 5000UNIT/ML 1ML VIAL IJ PRN (09:39)
[2017-07-04] MEDS: EPOETIN ALFA 3,000 UNIT/ML ML SQ SCH (09:45)
[2017-07-04] MEDS: EPOETIN ALFA 2,000 UNIT/ML VIAL SQ SCH (09:45)
[2017-07-04] MEDS: AMLODIPINE BESYLATE 5 MG TAB PO SCH (09:48)
[2017-07-04] MEDS: LISINOPRIL 20 MG TABLET PO SCH (09:48)
[2017-07-04] MEDS: PHYTONADIONE 10 MG in SODIUM CHLORIDE 0.9% 50 ML SQ SCH (10:03)
[2017-07-04] MEDS ORDERED: HYDROCODONE/ACETAMINOPHEN 5/325 MG TAB PO PRN (11:45)
== END 2017-07-04 21:38 | DRG 3 ==
LOC: EDH 10:05 → EDHIP 11:56 → 2BH 15:40
PROVIDERS: ADMIT Family Medicine; ATTEND Family Medicine
PROC: 0W960ZZ Drainage of Neck, Open Approach (ICD-10-PCS; principal; 2017-06-22)
PROC: 5A1955Z Respiratory Ventilation, Greater than 96 Consecutive Hours (ICD-10-PCS; 2017-06-22)
PROC: 5A1D70Z Performance of Urinary Filtration, Intermittent, Less than 6 Hours Per Day (ICD-10-PCS; 2017-06-23)
PROC: 5A1D70Z Performance of Urinary Filtration, Intermittent, Less than 6 Hours Per Day (ICD-10-PCS; 2017-06-24)
PROC: 0DH63UZ Insertion of Feeding Device into Stomach, Percutaneous Approach (ICD-10-PCS; 2017-06-26)
PROC: 3E043XZ Introduction of Vasopressor into Central Vein, Percutaneous Approach (ICD-10-PCS; 2017-06-26)
PROC: 3E0G76Z Introduction of Nutritional Substance into Upper GI, Via Natural or Artificial Opening (ICD-10-PCS; 2017-06-26)
PROC: 0BH17EZ Insertion of Endotracheal Airway into Trachea, Via Natural or Artificial Opening (ICD-10-PCS; 2017-06-27)
PROC: 0W360ZZ Control Bleeding in Neck, Open Approach (ICD-10-PCS; 2017-06-27)
PROC: 0B110F4 Bypass Trachea to Cutaneous with Tracheostomy Device, Open Approach (ICD-10-PCS; 2017-06-27)
PROC: 0JB50ZZ Excision of Left Neck Subcutaneous Tissue and Fascia, Open Approach (ICD-10-PCS; 2017-06-27)
PROC: 0JB40ZZ Excision of Right Neck Subcutaneous Tissue and Fascia, Open Approach (ICD-10-PCS; 2017-06-27)
PROC: 5A1D70Z Performance of Urinary Filtration, Intermittent, Less than 6 Hours Per Day (ICD-10-PCS; 2017-06-27)
PROC: 30233K1 Transfusion of Nonautologous Frozen Plasma into Peripheral Vein, Percutaneous Approach (ICD-10-PCS; 2017-06-27)
PROC: 30233N1 Transfusion of Nonautologous Red Blood Cells into Peripheral Vein, Percutaneous Approach (ICD-10-PCS; 2017-06-27)
PROC: 0DJ08ZZ Inspection of Upper Intestinal Tract, Via Natural or Artificial Opening Endoscopic (ICD-10-PCS; 2017-06-27)
PROC: 5A1D70Z Performance of Urinary Filtration, Intermittent, Less than 6 Hours Per Day (ICD-10-PCS; 2017-06-29)
PROC: 5A1D70Z Performance of Urinary Filtration, Intermittent, Less than 6 Hours Per Day (ICD-10-PCS; 2017-07-01)
PROC: 5A1D70Z Performance of Urinary Filtration, Intermittent, Less than 6 Hours Per Day (ICD-10-PCS; 2017-07-04)
DX: A41.9 Sepsis, unspecified organism (principal); N17.0 Acute kidney failure with tubular necrosis; R65.21 Severe sepsis with septic shock; M72.6 Necrotizing fasciitis; I13.2 Hypertensive heart and chronic kidney disease with heart failure and with stage 5 chronic kidney disease, or end stage renal disease; E87.4 Mixed disorder of acid-base balance; D62 Acute posthemorrhagic anemia; E11.22 Type 2 diabetes mellitus with diabetic chronic kidney disease; E87.2 Acidosis; N18.6 End stage renal disease; J96.01 Acute respiratory failure with hypoxia; L02.11 Cutaneous abscess of neck; L03.221 Cellulitis of neck; L02.01 Cutaneous abscess of face; K12.2 Cellulitis and abscess of mouth; L97.929 Non-pressure chronic ulcer of unspecified part of left lower leg with unspecified severity; E11.65 Type 2 diabetes mellitus with hyperglycemia; D64.9 Anemia, unspecified; I50.9 Heart failure, unspecified; E11.622 Type 2 diabetes mellitus with other skin ulcer; M27.2 Inflammatory conditions of jaws; R13.12 Dysphagia, oropharyngeal phase; R63.3 Feeding difficulties; R79.1 Abnormal coagulation profile; Z74.01 Bed confinement status; Z79.2 Long term (current) use of antibiotics; Z99.2 Dependence on renal dialysis; Z83.3 Family history of diabetes mellitus; Z82.49 Family history of ischemic heart disease and other diseases of the circulatory system; Z91.19 Patient's noncompliance with other medical treatment and regimen; A49.01 Methicillin susceptible Staphylococcus aureus infection, unspecified site
CPT/HCPCS: 31500; 36415; 36430; 36556; 36558; 36581; 36600; 70486; 71045; 76770; 77001; 78278; 80048; 80053; 80061; 81001; 82040; 82550; 82553; 82728; 82803; 82948; 83036; 83540; 83550; 83605; 83735; 83874; 83970; 84100; 84484; 84520; 85025; 85027; 85384; 85610; 85730; 86701; 86704; 86706; 86850; 86900; 86901; 86922; 86927; 87040; 87070; 87076; 87088; 87340; 87390; 87520; 87804; 88304; 90935; 93005; 93306; 94002; 94003; 94640; 94664; 99291; A6248; A9512; C1752; C9113; J0171; J0295; J0330; J0360; J0690; J0692; J0885; J1100; J1644; J1756; J1815; J2001; J2020; J2250; J2405; J2540; J2543; J2704; J2765; J3010; J3370; J3430; J3475; J3490; J7030; J7070; P9016; P9017; P9046

== ENCOUNTER 2017-07-06 12:18 | Inpatient (IN) | payer BC ==
[~2017-07-06] VITALS: Ht 157.5 cm; Wt 71.7 kg
[2017-07-06] VITALS (8 sets, daily range): BP systolic 91–112; BP diastolic 59–72
[2017-07-06 13:31] LABS: EOSINOPHILS % (AUTO) 2.2 % (0.0-8.0); LYMPHOCYTES % (AUTO) 14.1 % (21.0-51.0); MEAN CORPUSCULAR HEMOGLOBIN 29.4 pg (27.0-33.0); MEAN CORPUSCULAR HGB CONC 34.6 g/dL (32.0-36.0); MONOCYTES % (AUTO) 8.4 % (3.0-13.0); NEUTROPHILS % (AUTO) 74.3 % (40.0-77.0); NUCLEATED RED BLOOD CELLS 0.1 % (0.0-0.19); PLATELET COUNT (AUTO) 118 K/uL (130-400); RED CELL DISTRIBUTION WIDTH 15.4 % (11.0-15.5); WHITE BLOOD COUNT (AUTO) 7.5 K/uL (4.8-10.8)
[2017-07-06 13:35] LABS: HEMATOCRIT 18.7 % (36-48)
[2017-07-06 13:39] LABS: CARBON DIOXIDE 32 mmol/L (21-32); CHLORIDE 115 mmol/L (101-111); GLOMERULAR FILTR. RATE CALC 17 mL/min (>60); GLUCOSE,RANDOM 134 mg/dL (70-105); POTASSIUM 3.6 mmol/L (3.5-5.1); SODIUM SERUM 152 mmol/L (136-145); UREA NITROGEN, BLOOD 24 mg/dL (7-18)
[2017-07-06 13:44] LABS: INR 1.18 (0.85-1.15); PARTIAL THROMBOPLASTIN TIME 27.2 SEC (26.3-35.5); PROTHROMBIN TIME 12.3 SEC (9.6-11.6)
[2017-07-06 13:46] LABS: ALBUMIN 1.3 g/dL (3.5-5.0); ASPARTATE AMINOTRANSFERASE 18 U/L (10-37); BILIRUBIN,TOTAL 0.3 mg/dL (0.2-1.0); CREATINE KINASE, TOTAL 65 U/L (21-232); TOTAL PROTEIN, SERUM 3.3 g/dL (6.0-8.3)
[2017-07-06] MEDS ORDERED: SODIUM CHLORIDE 0.9% 500ML 500 ML IV ONE (14:07)
[2017-07-06 14:09] LABS: ALANINE AMINOTRANSFERASE < 1 U/L (12-78)
[2017-07-06] MEDS ORDERED: NOREPINEPHRINE BITARTRATE 1 MG/1 ML ML IV ONE (14:47)
[2017-07-06] MEDS ORDERED: SODIUM CHLORIDE 0.9% 250 ML IV ONE (14:47)
[2017-07-06] MEDS ORDERED: LACTULOSE 20 GM/30 ML UDCUP PO PRN (16:45)
[2017-07-06] MEDS ORDERED: NITROGLYCERIN 0.4 MG SL TAB SL PRN (16:45)
[2017-07-06] MEDS ORDERED: ACETAMINOPHEN 325 MG TAB PO PRN ×2 (16:45)
[2017-07-06] MEDS ORDERED: MAG HYDROX/AL HYDROX/SIMETH ES 30 ML SUSP UDCUP PO PRN (16:45)
[2017-07-06] MEDS ORDERED: CEFAZOLIN 1GM / D5W 50ML 50 ML IV SCH (16:45)
[2017-07-06] MEDS ORDERED: GUAIFENESIN-DM 200/20 MG 10 ML PO PRN (16:45)
[2017-07-06] MEDS: CEFAZOLIN SODIUM 1 GM VIAL IVP SCH (17:00)
[2017-07-06 18:24] LABS: HEMATOCRIT 26.7 % (36-48)
[2017-07-06 18:33] LABS: INR 1.11 (0.85-1.15); PARTIAL THROMBOPLASTIN TIME 27.2 SEC (26.3-35.5); PROTHROMBIN TIME 11.6 SEC (9.6-11.6)
[2017-07-06] MEDS ORDERED: PEG 3350/NA SULF,BICARB,CL/KCL 4000 ML SOLN GT SCH (19:30)
[2017-07-06] MEDS: INSULIN HUMULIN R 100 UNIT/ML 3ML SQ SCH (21:00)
[2017-07-06] MEDS: IPRATROPIUM/ALBUTEROL SULFATE 3 ML SOLUTION IH SCH (21:20)
[2017-07-07] VITALS (23 sets, daily range): BP systolic 75–126; BP diastolic 48–83
[2017-07-07] MEDS: CEFAZOLIN SODIUM 1 GM VIAL IVP SCH ×3 (00:49→18:15)
[2017-07-07] MEDS: IPRATROPIUM/ALBUTEROL SULFATE 3 ML SOLUTION IH SCH ×5 (00:56→23:27)
[2017-07-07] MEDS: MORPHINE SULFATE 2 MG/ML 1ML SYG IV PRN ×2 (02:13→18:29)
[2017-07-07] MEDS ORDERED: SODIUM CHLORIDE 0.9% 250 ML IV ONE ×3 (03:03→05:55)
[2017-07-07 04:30] LABS: MEAN CORPUSCULAR HEMOGLOBIN 30.1 pg (27.0-33.0); MEAN CORPUSCULAR HGB CONC 35.2 g/dL (32.0-36.0); MEAN CORPUSCULAR VOLUME 85.4 fL (79-99); NUCLEATED RED BLOOD CELLS 0.3 % (0.0-0.19); PLATELET COUNT (AUTO) 117 K/uL (130-400); RED BLOOD CELL COUNT(AUTO) 2.08 MIL/uL (4.00-5.50); RED CELL DISTRIBUTION WIDTH 14.7 % (11.0-15.5); WHITE BLOOD COUNT (AUTO) 7.2 K/uL (4.8-10.8)
[2017-07-07] MEDS: INSULIN HUMULIN R 100 UNIT/ML 3ML SQ SCH ×4 (04:38→16:30)
[2017-07-07 04:39] LABS: HEMATOCRIT 17.8 % (36-48)
[2017-07-07 04:46] LABS: INR 1.18 (0.85-1.15); PARTIAL THROMBOPLASTIN TIME 28.2 SEC (26.3-35.5); PROTHROMBIN TIME 12.4 SEC (9.6-11.6)
[2017-07-07 04:55] LABS: ALBUMIN 1.2 g/dL (3.5-5.0); ASPARTATE AMINOTRANSFERASE 19 U/L (10-37); BILIRUBIN,TOTAL 0.2 mg/dL (0.2-1.0); CARBON DIOXIDE 30 mmol/L (21-32); CHLORIDE 115 mmol/L (101-111); CREATININE 3.7 mg/dL (0.5-1.5); GLOMERULAR FILTR. RATE CALC 13 mL/min (>60); GLUCOSE,RANDOM 127 mg/dL (70-105); PHOSPHORUS 4.4 mg/dL (2.5-4.9); POTASSIUM 4.1 mmol/L (3.5-5.1); SODIUM SERUM 154 mmol/L (136-145); UREA NITROGEN, BLOOD 28 mg/dL (7-18)
[2017-07-07 05:06] LABS: BAND NEUTROPHILS % (MANUAL) 7 % (0-2); EOSINOPHILS % (MANUAL) 3 % (1-6); LYMPHOCYTES % (MANUAL) 11 % (22-44); MAN.DIFF COMMENT-IMPRESSION MANUAL DIFFERENTIAL; MONOCYTES % (MANUAL) 5 % (2-9); PLATELET MORPHOLOGY COMMENT DECREASED; SEGMENTED NEUTROPHILS % 74 % (40-70)
[2017-07-07 05:08] LABS: ALANINE AMINOTRANSFERASE < 6 U/L (12-78)
[2017-07-07 06:00] LABS: FIBRINOGEN 116 mg/dL (180-350)
[2017-07-07 06:26] LABS: D-DIMER 1027 ng/mL (0-500)
[2017-07-07] MEDS ORDERED: SODIUM CHLORIDE 0.9% 500ML 500 ML IV ONE (08:21)
[2017-07-07] MEDS ORDERED: 0.9% SODIUM CHLORIDE 250 ML IV BAG IV PRN (13:15)
[2017-07-07] MEDS ORDERED: ALBUMIN (HUMAN) 25% 100 ML IV PRN (13:15)
[2017-07-07] MEDS ORDERED: EPOETIN ALFA 2,000 UNIT/ML VIAL SQ NR (13:15)
[2017-07-07] MEDS ORDERED: SODIUM CHLORIDE 0.9% IJ SCH (13:45)
[2017-07-07] MEDS ORDERED: PHARMACY COMMUNICATION MISC SCH (13:45)
[2017-07-07] MEDS ORDERED: DESMOPRESSIN ACETATE IJ SCH (13:45)
[2017-07-07] MEDS ORDERED: PROPOFOL 1000 MG/100 ML 100 ML IV ONE (13:46)
[2017-07-07] MEDS ORDERED: EPHEDRINE SULFATE 50 MG/ML AMPULE ONE (13:47)
[2017-07-07] MEDS ORDERED: HEPARIN SODIUM 1000UNIT/ML 10ML VIAL ONE (14:44)
[2017-07-07] MEDS ORDERED: SODIUM BICARB 50MEQ 50ML VIAL ONE (14:44)
[2017-07-07] MEDS ORDERED: ISOVUE-300 100 ML VIAL IV ONE ×3 (14:45→16:54)
[2017-07-07] MEDS ORDERED: LIDOCAINE HCL 2% 20ML ONE (14:45)
[2017-07-07] MEDS ORDERED: EPOETIN ALFA 3,000 UNIT/ML ML SQ NR (15:00)
[2017-07-07 18:07] LABS: HEMATOCRIT 20.5 % (36-48)
[2017-07-07] MEDS: PANTOPRAZOLE SODIUM 80 MG in SODIUM CHLORIDE 0.9% 100 ML IV SCH (18:36)
[2017-07-07] MEDS: SODIUM CHLORIDE 0.9% 1000ML 1,000 ML IV PRN (18:47)
[2017-07-07] MEDS ORDERED: ALTEPLASE 2 MG/2 ML IVCATH SCH (22:15)
[2017-07-08] VITALS (23 sets, daily range): BP systolic 89–153; BP diastolic 53–86
[2017-07-08] MEDS: CEFAZOLIN SODIUM 1 GM VIAL IVP SCH ×3 (01:36→18:25)
[2017-07-08 04:13] LABS: MEAN CORPUSCULAR HGB CONC 35.4 g/dL (32.0-36.0); NUCLEATED RED BLOOD CELLS 0.2 % (0.0-0.19); PLATELET COUNT (AUTO) 85 K/uL (130-400); RED BLOOD CELL COUNT(AUTO) 1.91 MIL/uL (4.00-5.50); RED CELL DISTRIBUTION WIDTH 15.2 % (11.0-15.5); WHITE BLOOD COUNT (AUTO) 5.3 K/uL (4.8-10.8)
[2017-07-08 04:24] LABS: INR 1.2 (0.85-1.15); PARTIAL THROMBOPLASTIN TIME 36.3 SEC (26.3-35.5); PROTHROMBIN TIME 12.6 SEC (9.6-11.6)
[2017-07-08 04:34] LABS: HEMATOCRIT 16.2 % (36-48)
[2017-07-08 04:37] LABS: ALBUMIN 1.8 g/dL (3.5-5.0); ASPARTATE AMINOTRANSFERASE 15 U/L (10-37); BILIRUBIN,TOTAL 0.2 mg/dL (0.2-1.0); CARBON DIOXIDE 29 mmol/L (21-32); CHLORIDE 111 mmol/L (101-111); CREATININE 3.7 mg/dL (0.5-1.5); GLOMERULAR FILTR. RATE CALC 13 mL/min (>60); GLUCOSE,RANDOM 106 mg/dL (70-105); POTASSIUM 3.7 mmol/L (3.5-5.1); SODIUM SERUM 151 mmol/L (136-145); TOTAL PROTEIN, SERUM 3.6 g/dL (6.0-8.3); UREA NITROGEN, BLOOD 27 mg/dL (7-18)
[2017-07-08 04:46] LABS: ALANINE AMINOTRANSFERASE < 6 U/L (12-78)
[2017-07-08] MEDS: INSULIN HUMULIN R 100 UNIT/ML 3ML SQ SCH ×3 (05:57→16:30)
[2017-07-08 06:18] LABS: BAND NEUTROPHILS % (MANUAL) 5 % (0-2); EOSINOPHILS % (MANUAL) 3 % (1-6); LYMPHOCYTES % (MANUAL) 17 % (22-44); MONOCYTES % (MANUAL) 5 % (2-9); SEGMENTED NEUTROPHILS % 70 % (40-70)
[2017-07-08 06:20] LABS: MAN.DIFF COMMENT-IMPRESSION MANUAL DIFFERENTIAL; PLATELET MORPHOLOGY COMMENT SLIGHTLY DECREASED
[2017-07-08] MEDS: PANTOPRAZOLE SODIUM 80 MG in SODIUM CHLORIDE 0.9% 100 ML IV SCH ×2 (06:29→20:15)
[2017-07-08] MEDS: IPRATROPIUM/ALBUTEROL SULFATE 3 ML SOLUTION IH SCH ×4 (06:43→23:55)
[2017-07-08] MEDS: AMINOCAPROIC ACID 500 MG TABLET PO SCH (08:00)
[2017-07-08] MEDS ORDERED: SODIUM CHLORIDE 0.9% 500ML 500 ML IV ONE (08:26)
[2017-07-08] MEDS ORDERED: PHARMACY COMMUNICATION MISC SCH (08:30)
[2017-07-08] MEDS ORDERED: SODIUM CHLORIDE 0.9% IV SCH (09:45)
[2017-07-08] MEDS ORDERED: AMINOCAPROIC ACID IV SCH (09:45)
[2017-07-08 10:52] LABS: HEMATOCRIT 19.9 % (36-48)
[2017-07-08] MEDS ORDERED: HYDROXYZINE HCL 50 MG/ML VIAL IM PRN (14:15)
[2017-07-08] MEDS: HYDROXYZINE HCL 50 MG/ML VIAL IM PRN (18:29)
[2017-07-08 18:59] LABS: HEMATOCRIT 19.8 % (36-48)
[2017-07-09] VITALS (24 sets, daily range): BP systolic 92–167; BP diastolic 55–93
[2017-07-09] MEDS: CEFAZOLIN SODIUM 1 GM VIAL IVP SCH ×3 (00:55→17:13)
[2017-07-09 05:49] LABS: MEAN CORPUSCULAR HEMOGLOBIN 29.5 pg (27.0-33.0); MEAN CORPUSCULAR HGB CONC 34.2 g/dL (32.0-36.0); MEAN CORPUSCULAR VOLUME 86.2 fL (79-99); NUCLEATED RED BLOOD CELLS 0.2 % (0.0-0.19); PLATELET COUNT (AUTO) 94 K/uL (130-400); RED BLOOD CELL COUNT(AUTO) 2.26 MIL/uL (4.00-5.50); RED CELL DISTRIBUTION WIDTH 14.8 % (11.0-15.5); WHITE BLOOD COUNT (AUTO) 4.4 K/uL (4.8-10.8)
[2017-07-09 05:56] LABS: INR 1.14 (0.85-1.15); PARTIAL THROMBOPLASTIN TIME 25.7 SEC (26.3-35.5); PROTHROMBIN TIME 11.9 SEC (9.6-11.6)
[2017-07-09 05:59] LABS: HEMATOCRIT 19.5 % (36-48)
[2017-07-09 06:02] LABS: ALBUMIN 1.8 g/dL (3.5-5.0); ASPARTATE AMINOTRANSFERASE 13 U/L (10-37); BILIRUBIN,TOTAL 0.2 mg/dL (0.2-1.0); CARBON DIOXIDE 26 mmol/L (21-32); CHLORIDE 111 mmol/L (101-111); CREATININE 4.8 mg/dL (0.5-1.5); GLOMERULAR FILTR. RATE CALC 10 mL/min (>60); GLUCOSE,RANDOM 87 mg/dL (70-105); PHOSPHORUS 6.1 mg/dL (2.5-4.9); POTASSIUM 3.7 mmol/L (3.5-5.1); SODIUM SERUM 149 mmol/L (136-145); TOTAL PROTEIN, SERUM 3.9 g/dL (6.0-8.3); UREA NITROGEN, BLOOD 34 mg/dL (7-18)
[2017-07-09] MEDS: INSULIN HUMULIN R 100 UNIT/ML 3ML SQ SCH ×5 (06:03→23:56)
[2017-07-09 06:04] LABS: ALANINE AMINOTRANSFERASE < 6 U/L (12-78)
[2017-07-09 06:07] LABS: BAND NEUTROPHILS % (MANUAL) 5 % (0-2); EOSINOPHILS % (MANUAL) 9 % (1-6); LYMPHOCYTES % (MANUAL) 21 % (22-44); MAN.DIFF COMMENT-IMPRESSION MANUAL DIFFERENTIAL; MONOCYTES % (MANUAL) 3 % (2-9); PLATELET MORPHOLOGY COMMENT DECREASED; SEGMENTED NEUTROPHILS % 62 % (40-70)
[2017-07-09] MEDS: IPRATROPIUM/ALBUTEROL SULFATE 3 ML SOLUTION IH SCH ×4 (06:36→23:57)
[2017-07-09] MEDS: PANTOPRAZOLE SODIUM 80 MG in SODIUM CHLORIDE 0.9% 100 ML IV SCH ×2 (09:44→21:22)
[2017-07-09] MEDS: AMINOCAPROIC ACID 500 MG TABLET PO SCH ×6 (10:15→16:29)
[2017-07-09 18:56] LABS: HEMATOCRIT 24.5 % (36-48)
[2017-07-10] VITALS (25 sets, daily range): BP systolic 90–148; BP diastolic 53–94
[2017-07-10] MEDS: CEFAZOLIN SODIUM 1 GM VIAL IVP SCH ×3 (00:33→16:50)
[2017-07-10 00:36] LABS: HEMATOCRIT 19.8 % (36-48)
[2017-07-10] MEDS ORDERED: SODIUM CHLORIDE 0.9% 500ML 500 ML IV ONE (00:56)
[2017-07-10] MEDS: INSULIN HUMULIN R 100 UNIT/ML 3ML SQ SCH ×3 (06:26→16:30)
[2017-07-10] MEDS: IPRATROPIUM/ALBUTEROL SULFATE 3 ML SOLUTION IH SCH ×3 (06:59→19:34)
[2017-07-10 07:47] LABS: HEMATOCRIT 27.2 % (36-48); MEAN CORPUSCULAR HEMOGLOBIN 29.1 pg (27.0-33.0); MEAN CORPUSCULAR HGB CONC 34.5 g/dL (32.0-36.0); MEAN CORPUSCULAR VOLUME 84.3 fL (79-99); NUCLEATED RED BLOOD CELLS 0.1 % (0.0-0.19); PLATELET COUNT (AUTO) 105 K/uL (130-400); RED BLOOD CELL COUNT(AUTO) 3.23 MIL/uL (4.00-5.50); RED CELL DISTRIBUTION WIDTH 16.8 % (11.0-15.5); WHITE BLOOD COUNT (AUTO) 6.5 K/uL (4.8-10.8)
[2017-07-10 08:02] LABS: INR 1.34 (0.85-1.15); PARTIAL THROMBOPLASTIN TIME 30.4 SEC (26.3-35.5)
[2017-07-10 08:04] LABS: POTASSIUM 4.1 mmol/L (3.5-5.1)
[2017-07-10 08:55] LABS: CREATININE 5.6 mg/dL (0.5-1.5)
[2017-07-10] MEDS: PANTOPRAZOLE SODIUM 80 MG in SODIUM CHLORIDE 0.9% 100 ML IV SCH (09:14)
[2017-07-10] MEDS ORDERED: PROPOFOL 10 MG/ML 20ML VIAL IV ONE (11:43)
[2017-07-10] MEDS ORDERED: ROCURONIUM BROMIDE 10MG/1ML 5ML VL ONE (11:43)
[2017-07-10] MEDS: EPOETIN ALFA 10,000 UNIT/ML VIAL SQ SCH ×2 (15:00→16:50)
[2017-07-10] MEDS: HEPARIN SODIUM 5000UNIT/ML 1ML VIAL IJ PRN (16:20)
[2017-07-10 19:10] LABS: HEMATOCRIT 23.8 % (36-48)
[2017-07-11] VITALS (18 sets, daily range): BP systolic 101–159; BP diastolic 63–96
[2017-07-11] MEDS: IPRATROPIUM/ALBUTEROL SULFATE 3 ML SOLUTION IH SCH ×5 (01:02→23:13)
[2017-07-11] MEDS: CEFAZOLIN SODIUM 1 GM VIAL IVP SCH ×3 (02:43→16:37)
[2017-07-11] MEDS: PANTOPRAZOLE SODIUM 80 MG in SODIUM CHLORIDE 0.9% 100 ML IV SCH (03:07)
[2017-07-11 04:10] LABS: HEMATOCRIT 22.9 % (36-48); MEAN CORPUSCULAR HEMOGLOBIN 30.7 pg (27.0-33.0); MEAN CORPUSCULAR HGB CONC 36.4 g/dL (32.0-36.0); MEAN CORPUSCULAR VOLUME 84.3 fL (79-99); PLATELET COUNT (AUTO) 91 K/uL (130-400); RED BLOOD CELL COUNT(AUTO) 2.71 MIL/uL (4.00-5.50); RED CELL DISTRIBUTION WIDTH 17.3 % (11.0-15.5); WHITE BLOOD COUNT (AUTO) 5.8 K/uL (4.8-10.8)
[2017-07-11 04:13] LABS: CREATININE 4.1 mg/dL (0.5-1.5); POTASSIUM 3.7 mmol/L (3.5-5.1)
[2017-07-11] MEDS ORDERED: INSULIN HUMULIN R 100 UNIT/ML 3ML SQ SCH (06:00)
[2017-07-11] MEDS: INSULIN HUMULIN R 100 UNIT/ML 3ML SQ SCH ×3 (06:00→17:17)
[2017-07-11] MEDS ORDERED: GLUCAGON 1MG KIT 1 MG ML IM PRN (07:45)
[2017-07-11] MEDS ORDERED: DEXTROSE 50%-WATER 50 ML DISP.SYRIN IV PRN (07:45)
[2017-07-11] MEDS ORDERED: DEXTROSE 50%-WATER 50 ML DISP.SYRIN IV ONE (07:48)
[2017-07-11] MEDS ORDERED: NITROGLYCERIN 1GM/1 INCH PACKET TD SCH (10:00)
[2017-07-11] MEDS ORDERED: NITROGLYCERIN 1GM/1 INCH PACKET TD PRN (12:30)
[2017-07-11] MEDS: AMINOCAPROIC ACID 500 MG TABLET PO SCH ×8 (14:22→20:07)
[2017-07-11] MEDS: EPOETIN ALFA 10,000 UNIT/ML VIAL SQ SCH (14:32)
[2017-07-11 19:00] LABS: HEMATOCRIT 18.8 % (36-48)
[2017-07-11] MEDS ORDERED: SODIUM CHLORIDE 0.9% 500ML 500 ML IV ONE (21:25)
[2017-07-12] VITALS (24 sets, daily range): BP systolic 115–169; BP diastolic 70–99
[2017-07-12] MEDS: PANTOPRAZOLE 40 MG/VIAL IVP SCH ×3 (00:57→22:55)
[2017-07-12] MEDS: CEFAZOLIN SODIUM 1 GM VIAL IVP SCH ×3 (04:04→17:25)
[2017-07-12 04:51] LABS: HEMATOCRIT 26.2 % (36-48); MEAN CORPUSCULAR HEMOGLOBIN 29.3 pg (27.0-33.0); MEAN CORPUSCULAR HGB CONC 34.2 g/dL (32.0-36.0); MEAN CORPUSCULAR VOLUME 85.7 fL (79-99); NUCLEATED RED BLOOD CELLS 0.1 % (0.0-0.19); PLATELET COUNT (AUTO) 121 K/uL (130-400); RED BLOOD CELL COUNT(AUTO) 3.05 MIL/uL (4.00-5.50); RED CELL DISTRIBUTION WIDTH 16.3 % (11.0-15.5)
[2017-07-12 04:58] LABS: INR 1.93 (0.85-1.15)
[2017-07-12 05:00] LABS: CREATININE 4.9 mg/dL (0.5-1.5); POTASSIUM 3.8 mmol/L (3.5-5.1)
[2017-07-12] MEDS: INSULIN HUMULIN R 100 UNIT/ML 3ML SQ SCH ×4 (06:00→18:00)
[2017-07-12] MEDS: PHYTONADIONE 10 MG/1 ML AMP SQ SCH ×2 (06:29→20:26)
[2017-07-12] MEDS: IPRATROPIUM/ALBUTEROL SULFATE 3 ML SOLUTION IH SCH ×3 (06:32→18:46)
[2017-07-12] MEDS ORDERED: IOPAMIDOL-370 75 ML VIAL IV ONE (09:41)
[2017-07-12 10:04] LABS: HEMATOCRIT 25.8 % (36-48); MEAN CORPUSCULAR HEMOGLOBIN 30.2 pg (27.0-33.0); MEAN CORPUSCULAR VOLUME 86.2 fL (79-99); PLATELET COUNT (AUTO) 121 K/uL (130-400); RED BLOOD CELL COUNT(AUTO) 2.99 MIL/uL (4.00-5.50); RED CELL DISTRIBUTION WIDTH 16.7 % (11.0-15.5); WHITE BLOOD COUNT (AUTO) 7.4 K/uL (4.8-10.8)
[2017-07-12] MEDS: PROCALAMINE IV SOLUTION 1,000 ML IV SCH (15:30)
[2017-07-12 16:35] LABS: HEMATOCRIT 22.4 % (36-48)
[2017-07-13] VITALS (23 sets, daily range): BP systolic 91–155; BP diastolic 57–88
[2017-07-13] MEDS: IPRATROPIUM/ALBUTEROL SULFATE 3 ML SOLUTION IH SCH ×5 (00:06→23:40)
[2017-07-13] MEDS: CEFAZOLIN SODIUM 1 GM VIAL IVP SCH ×4 (00:28→19:11)
[2017-07-13] MEDS: PROCALAMINE IV SOLUTION 1,000 ML IV SCH ×2 (04:16→23:48)
[2017-07-13 05:07] LABS: MEAN CORPUSCULAR HEMOGLOBIN 31.6 pg (27.0-33.0); MEAN CORPUSCULAR HGB CONC 36.4 g/dL (32.0-36.0); MEAN CORPUSCULAR VOLUME 86.9 fL (79-99); NUCLEATED RED BLOOD CELLS 0.1 % (0.0-0.19); PLATELET COUNT (AUTO) 103 K/uL (130-400); RED BLOOD CELL COUNT(AUTO) 3.34 MIL/uL (4.00-5.50); RED CELL DISTRIBUTION WIDTH 16.2 % (11.0-15.5); WHITE BLOOD COUNT (AUTO) 5.1 K/uL (4.8-10.8)
[2017-07-13 05:18] LABS: INR 1.06 (0.85-1.15); PARTIAL THROMBOPLASTIN TIME 29.2 SEC (26.3-35.5); PROTHROMBIN TIME 11.1 SEC (9.6-11.6)
[2017-07-13 05:20] LABS: POTASSIUM 3.7 mmol/L (3.5-5.1)
[2017-07-13] MEDS: INSULIN HUMULIN R 100 UNIT/ML 3ML SQ SCH ×4 (06:00→18:00)
[2017-07-13] MEDS: EPOETIN ALFA 10,000 UNIT/ML VIAL SQ SCH ×2 (07:15→21:40)
[2017-07-13] MEDS ORDERED: LIDOCAINE HCL 1% MDV 50ML VIAL ONE (07:53)
[2017-07-13] MEDS: PANTOPRAZOLE 40 MG/VIAL IVP SCH ×2 (09:00→21:39)
[2017-07-13] MEDS ORDERED: PROPOFOL 10 MG/ML 20ML VIAL IV ONE (09:24)
[2017-07-13] MEDS ORDERED: ONDANSETRON HCL 4 MG/2 ML VIAL ONE (09:24)
[2017-07-13] MEDS ORDERED: ROCURONIUM BROMIDE 10MG/1ML 5ML VL ONE (09:24)
[2017-07-13] MEDS ORDERED: LIDOCAINE HCL 2% JELLY 5 ML ONE (09:24)
[2017-07-13] MEDS ORDERED: LIDOCAINE PF 2% 5ML ABBOJECT ONE (09:24)
[2017-07-13] MEDS ORDERED: MIDAZOLAM HCL 1 MG/ML 2ML VIAL ONE (09:24)
[2017-07-13] MEDS ORDERED: DEXAMETHASONE SOD PHOSPHATE 10MG/ML 1ML VIAL ONE (09:24)
[2017-07-13] MEDS ORDERED: LIDOCAINE HCL MPF 1% 5ML VIAL ONE (09:24)
[2017-07-13] MEDS ORDERED: FENTANYL CITRATE PF 50 MCG/1 ML 2ML VIAL ONE (09:25)
[2017-07-13] MEDS ORDERED: CEFAZOLIN SODIUM 1 GM VIAL ONE (11:05)
[2017-07-13] MEDS ORDERED: CEFAZOLIN 2GM / 50 ML 50 ML IV SCH (11:15)
[2017-07-13 16:16] LABS: HEMATOCRIT 28.5 % (36-48)
[2017-07-13] MEDS: ROPIVACAINE 0.2%200ML EPIDURAL 200 ML EP SCH (21:39)
[2017-07-14] VITALS (24 sets, daily range): BP systolic 123–172; BP diastolic 64–95
[2017-07-14] MEDS: PHYTONADIONE 10 MG/1 ML AMP SQ SCH (00:52)
[2017-07-14] MEDS: CEFAZOLIN SODIUM 1 GM VIAL IVP SCH ×4 (02:17→17:18)
[2017-07-14] MEDS: ONDANSETRON HCL 4 MG/2 ML VIAL IV PRN (03:58)
[2017-07-14 05:48] LABS: BASOPHILS % (AUTO) 0.5 % (0.0-5.0); EOSINOPHILS % (AUTO) 0.8 % (0.0-8.0); HEMATOCRIT 29.6 % (36-48); LYMPHOCYTES % (AUTO) 7.8 % (21.0-51.0); MEAN CORPUSCULAR HEMOGLOBIN 30.2 pg (27.0-33.0); MEAN CORPUSCULAR HGB CONC 34.3 g/dL (32.0-36.0); MEAN CORPUSCULAR VOLUME 87.8 fL (79-99); MONOCYTES % (AUTO) 7.4 % (3.0-13.0); NUCLEATED RED BLOOD CELLS 0.1 % (0.0-0.19); PLATELET COUNT (AUTO) 105 K/uL (130-400); RED BLOOD CELL COUNT(AUTO) 3.36 MIL/uL (4.00-5.50); RED CELL DISTRIBUTION WIDTH 16.9 % (11.0-15.5); WHITE BLOOD COUNT (AUTO) 6.2 K/uL (4.8-10.8)
[2017-07-14 05:56] LABS: INR 1.02 (0.85-1.15); PARTIAL THROMBOPLASTIN TIME 28.9 SEC (26.3-35.5); PROTHROMBIN TIME 10.7 SEC (9.6-11.6)
[2017-07-14 05:59] LABS: ALBUMIN 1.4 g/dL (3.5-5.0); ASPARTATE AMINOTRANSFERASE 15 U/L (10-37); BILIRUBIN,TOTAL 0.3 mg/dL (0.2-1.0); CARBON DIOXIDE 29 mmol/L (21-32); CHLORIDE 103 mmol/L (101-111); CREATININE 2.8 mg/dL (0.5-1.5); GLOMERULAR FILTR. RATE CALC 18 mL/min (>60); GLUCOSE,RANDOM 100 mg/dL (70-105); PHOSPHORUS 2.6 mg/dL (2.5-4.9); POTASSIUM 3.6 mmol/L (3.5-5.1); SODIUM SERUM 140 mmol/L (136-145); TOTAL PROTEIN, SERUM 3.8 g/dL (6.0-8.3); UREA NITROGEN, BLOOD 19 mg/dL (7-18)
[2017-07-14 06:00] LABS: ALANINE AMINOTRANSFERASE < 6 U/L (12-78)
[2017-07-14] MEDS: INSULIN HUMULIN R 100 UNIT/ML 3ML SQ SCH ×4 (06:00→18:00)
[2017-07-14 06:18] LABS: NEUTROPHILS % (AUTO) 83.5 % (40.0-77.0)
[2017-07-14] MEDS: IPRATROPIUM/ALBUTEROL SULFATE 3 ML SOLUTION IH SCH ×4 (07:54→22:50)
[2017-07-14] MEDS: PANTOPRAZOLE 40 MG/VIAL IVP SCH ×2 (09:00→20:54)
[2017-07-14] MEDS ORDERED: POTASSIUM CHLORIDE 20 MEQ ERTAB PO SCH (09:30)
[2017-07-14] MEDS ORDERED: TRAMADOL HCL 50 MG TABLET PEG SCH (10:45)
[2017-07-14] MEDS: ACETAMINOPHEN-CODEINE 300/30MG TAB PO PRN ×3 (11:53→22:52)
[2017-07-14] MEDS: EPOETIN ALFA 10,000 UNIT/ML VIAL SQ SCH (15:00)
[2017-07-14] MEDS ORDERED: TRAMADOL HCL 50 MG TABLET PEG PRN (16:45)
[2017-07-15] VITALS (24 sets, daily range): BP systolic 97–172; BP diastolic 52–107
[2017-07-15] MEDS: CEFAZOLIN SODIUM 1 GM VIAL IVP SCH ×4 (00:33→18:01)
[2017-07-15] MEDS: TRAMADOL HCL 50 MG TABLET PO PRN ×3 (00:33→23:26)
[2017-07-15 04:14] LABS: BASOPHILS % (AUTO) 0.3 % (0.0-5.0); EOSINOPHILS % (AUTO) 1.8 % (0.0-8.0); HEMATOCRIT 27.6 % (36-48); LYMPHOCYTES % (AUTO) 8.7 % (21.0-51.0); MEAN CORPUSCULAR HEMOGLOBIN 31.9 pg (27.0-33.0); MEAN CORPUSCULAR HGB CONC 35.8 g/dL (32.0-36.0); MEAN CORPUSCULAR VOLUME 89.1 fL (79-99); MONOCYTES % (AUTO) 6.8 % (3.0-13.0); NEUTROPHILS % (AUTO) 82.4 % (40.0-77.0); PLATELET COUNT (AUTO) 111 K/uL (130-400); RED BLOOD CELL COUNT(AUTO) 3.09 MIL/uL (4.00-5.50); RED CELL DISTRIBUTION WIDTH 17.2 % (11.0-15.5); WHITE BLOOD COUNT (AUTO) 5.7 K/uL (4.8-10.8)
[2017-07-15 04:38] LABS: CREATININE 3.5 mg/dL (0.5-1.5); POTASSIUM 3.8 mmol/L (3.5-5.1)
[2017-07-15] MEDS: INSULIN HUMULIN R 100 UNIT/ML 3ML SQ SCH ×4 (06:00→18:00)
[2017-07-15] MEDS: IPRATROPIUM/ALBUTEROL SULFATE 3 ML SOLUTION IH SCH ×4 (06:21→23:38)
[2017-07-15] MEDS ORDERED: PROCALAMINE IV SOLUTION 1,000 ML IV SCH (09:00)
[2017-07-15] MEDS: ACETAMINOPHEN-CODEINE 300/30MG TAB PO PRN ×2 (12:55→20:08)
[2017-07-15] MEDS: EPOETIN ALFA 10,000 UNIT/ML VIAL SQ SCH (15:00)
[2017-07-15] MEDS: PANTOPRAZOLE 40 MG/VIAL IVP SCH ×2 (18:01→20:08)
[2017-07-15] MEDS: HYDRALAZINE HCL 20 MG/ML VIAL IV PRN (20:08)
[2017-07-15] MEDS: ROPIVACAINE 0.2%200ML EPIDURAL 200 ML EP SCH (20:28)
[2017-07-16] VITALS (23 sets, daily range): BP systolic 83–178; BP diastolic 45–85
[2017-07-16] MEDS: CEFAZOLIN SODIUM 1 GM VIAL IVP SCH ×4 (00:59→17:15)
[2017-07-16 04:27] LABS: BASOPHILS % (AUTO) 0.4 % (0.0-5.0); EOSINOPHILS % (AUTO) 2.9 % (0.0-8.0); HEMATOCRIT 28.9 % (36-48); LYMPHOCYTES % (AUTO) 6.3 % (21.0-51.0); MEAN CORPUSCULAR HEMOGLOBIN 30.7 pg (27.0-33.0); MEAN CORPUSCULAR HGB CONC 34.1 g/dL (32.0-36.0); MEAN CORPUSCULAR VOLUME 90.1 fL (79-99); MONOCYTES % (AUTO) 7.6 % (3.0-13.0); NEUTROPHILS % (AUTO) 82.8 % (40.0-77.0); NUCLEATED RED BLOOD CELLS 0.1 % (0.0-0.19); PLATELET COUNT (AUTO) 118 K/uL (130-400); RED BLOOD CELL COUNT(AUTO) 3.21 MIL/uL (4.00-5.50); RED CELL DISTRIBUTION WIDTH 18.2 % (11.0-15.5); WHITE BLOOD COUNT (AUTO) 5.5 K/uL (4.8-10.8)
[2017-07-16 04:32] LABS: CREATININE 4.1 mg/dL (0.5-1.5); POTASSIUM 3.6 mmol/L (3.5-5.1)
[2017-07-16] MEDS: TRAMADOL HCL 50 MG TABLET PO PRN ×2 (04:47→19:34)
[2017-07-16] MEDS: INSULIN HUMULIN R 100 UNIT/ML 3ML SQ SCH ×4 (05:29→18:00)
[2017-07-16] MEDS: IPRATROPIUM/ALBUTEROL SULFATE 3 ML SOLUTION IH SCH ×4 (07:32→23:35)
[2017-07-16] MEDS: PANTOPRAZOLE 40 MG/VIAL IVP SCH ×2 (09:07→19:34)
[2017-07-16] MEDS: ACETAMINOPHEN-CODEINE 300/30MG TAB PO PRN (09:09)
[2017-07-16] MEDS ORDERED: NITROGLYCERIN 1GM/1 INCH PACKET TD PRN (12:07)
[2017-07-16] MEDS ORDERED: LISINOPRIL 20 MG TABLET PO SCH (12:15)
[2017-07-16] MEDS: EPOETIN ALFA 10,000 UNIT/ML VIAL SQ SCH (15:00)
[2017-07-16] MEDS: HYDRALAZINE HCL 20 MG/ML VIAL IV PRN (17:14)
[2017-07-16] MEDS: ONDANSETRON HCL 4 MG/2 ML VIAL IV PRN (19:33)
[2017-07-17] VITALS (19 sets, daily range): BP systolic 110–182; BP diastolic 65–97
[2017-07-17] MEDS: CEFAZOLIN SODIUM 1 GM VIAL IVP SCH ×3 (00:42→16:12)
[2017-07-17] MEDS: TRAMADOL HCL 50 MG TABLET PO PRN ×2 (01:00→17:34)
[2017-07-17] MEDS: ROPIVACAINE 0.2%200ML EPIDURAL 200 ML EP SCH (03:26)
[2017-07-17 03:59] LABS: HEMATOCRIT 32.4 % (36-48); MEAN CORPUSCULAR HEMOGLOBIN 30.8 pg (27.0-33.0); MEAN CORPUSCULAR VOLUME 90.7 fL (79-99); PLATELET COUNT (AUTO) 138 K/uL (130-400); RED BLOOD CELL COUNT(AUTO) 3.57 MIL/uL (4.00-5.50); WHITE BLOOD COUNT (AUTO) 6.2 K/uL (4.8-10.8)
[2017-07-17 04:07] LABS: CREATININE 4.6 mg/dL (0.5-1.5); POTASSIUM 3.5 mmol/L (3.5-5.1)
[2017-07-17 04:12] LABS: BAND NEUTROPHILS % (MANUAL) 4 % (0-2); EOSINOPHILS % (MANUAL) 1 % (1-6); LYMPHOCYTES % (MANUAL) 3 % (22-44); MAN.DIFF COMMENT-IMPRESSION MANUAL DIFFERENTIAL; MONOCYTES % (MANUAL) 2 % (2-9); PLATELET MORPHOLOGY COMMENT ADEQUATE; SEGMENTED NEUTROPHILS % 90 % (40-70)
[2017-07-17] MEDS: INSULIN HUMULIN R 100 UNIT/ML 3ML SQ SCH ×5 (06:00→23:03)
[2017-07-17] MEDS: IPRATROPIUM/ALBUTEROL SULFATE 3 ML SOLUTION IH SCH ×3 (07:21→19:18)
[2017-07-17 08:28] LABS: ABG BASE EXCESS 3.7 mmol/L (-2.0-3.0); ABG HCO3 26.6 mmol/L (21.0-28.0); ABG OXYGEN SATURATION 98.7 % (95.0-99.0); ABG PCO2 35 mmHg (32-45)
[2017-07-17] MEDS: PANTOPRAZOLE 40 MG/VIAL IVP SCH ×2 (10:38→20:36)
[2017-07-17] MEDS: LISINOPRIL 20 MG TABLET PO SCH (10:39)
[2017-07-17] MEDS: HYDRALAZINE HCL 20 MG/ML VIAL IV PRN (16:12)
[2017-07-17 17:51] LABS: HEMATOCRIT 35.6 % (36-48); MEAN CORPUSCULAR HEMOGLOBIN 31.7 pg (27.0-33.0); MEAN CORPUSCULAR HGB CONC 35.1 g/dL (32.0-36.0); MEAN CORPUSCULAR VOLUME 90.4 fL (79-99); PLATELET COUNT (AUTO) 204 K/uL (130-400); RED BLOOD CELL COUNT(AUTO) 3.93 MIL/uL (4.00-5.50); RED CELL DISTRIBUTION WIDTH 19.1 % (11.0-15.5); WHITE BLOOD COUNT (AUTO) 8.1 K/uL (4.8-10.8)
[2017-07-17 18:12] LABS: CREATININE 4.9 mg/dL (0.5-1.5); POTASSIUM 3.6 mmol/L (3.5-5.1)
[2017-07-17] MEDS: HEPARIN SODIUM 5000UNIT/ML 1ML VIAL IJ PRN (20:30)
[2017-07-17] MEDS: SODIUM CHLORIDE 0.9% 1000ML 1,000 ML IV PRN (20:30)
[2017-07-17] MEDS: EPOETIN ALFA 10,000 UNIT/ML VIAL SQ SCH (22:02)
[2017-07-17] MEDS: ACETAMINOPHEN-CODEINE 300/30MG TAB PO PRN (22:16)
[2017-07-18] VITALS (25 sets, daily range): BP systolic 108–164; BP diastolic 48–103
[2017-07-18] MEDS: CEFAZOLIN SODIUM 1 GM VIAL IVP SCH ×3 (00:11→17:53)
[2017-07-18] MEDS: IPRATROPIUM/ALBUTEROL SULFATE 3 ML SOLUTION IH SCH ×4 (00:48→19:38)
[2017-07-18 03:43] LABS: MEAN CORPUSCULAR HEMOGLOBIN 30.3 pg (27.0-33.0); MEAN CORPUSCULAR HGB CONC 33.4 g/dL (32.0-36.0); MEAN CORPUSCULAR VOLUME 90.7 fL (79-99); PLATELET COUNT (AUTO) 118 K/uL (130-400)
[2017-07-18 03:59] LABS: CREATININE 3.3 mg/dL (0.5-1.5); POTASSIUM 3.3 mmol/L (3.5-5.1)
[2017-07-18] MEDS: INSULIN HUMULIN R 100 UNIT/ML 3ML SQ SCH ×4 (06:00→21:49)
[2017-07-18] MEDS: LORAZEPAM 2 MG/ML 1 ML VIAL IVP PRN (08:40)
[2017-07-18] MEDS ORDERED: PHARMACY COMMUNICATION MISC STA (08:56)
[2017-07-18] MEDS ORDERED: PHENYTOIN SODIUM INJ SCH (09:15)
[2017-07-18] MEDS ORDERED: COMPOUND IV MISC 1 EACH IVSOLN MISC PRN (09:15)
[2017-07-18] MEDS ORDERED: SODIUM CHLORIDE 0.9% INJ SCH (09:15)
[2017-07-18] MEDS: LISINOPRIL 20 MG TABLET PO SCH (09:23)
[2017-07-18] MEDS: PANTOPRAZOLE 40 MG/VIAL IVP SCH ×2 (09:26→20:23)
[2017-07-18] MEDS: ASPIRIN 325 MG TABLET PO SCH (14:44)
[2017-07-18] MEDS: PHENYTOIN 100 MG/4 ML UDCUP PO SCH (20:27)
[2017-07-18] MEDS: HYDROXYZINE HCL 50 MG/ML VIAL IM PRN (21:56)
[2017-07-19] VITALS (25 sets, daily range): BP systolic 100–178; BP diastolic 66–97
[2017-07-19] MEDS: CEFAZOLIN SODIUM 1 GM VIAL IVP SCH ×3 (00:08→17:18)
[2017-07-19] MEDS ORDERED: DiphenhydrAMINE HCL 50 MG/ML VIAL ONE (02:58)
[2017-07-19 03:58] LABS: HEMATOCRIT 33.7 % (36-48); MEAN CORPUSCULAR HEMOGLOBIN 30.3 pg (27.0-33.0); MEAN CORPUSCULAR HGB CONC 33.3 g/dL (32.0-36.0); MEAN CORPUSCULAR VOLUME 90.9 fL (79-99); NUCLEATED RED BLOOD CELLS 0.1 % (0.0-0.19); PLATELET COUNT (AUTO) 117 K/uL (130-400); RED BLOOD CELL COUNT(AUTO) 3.71 MIL/uL (4.00-5.50)
[2017-07-19 04:04] LABS: POTASSIUM 3.5 mmol/L (3.5-5.1)
[2017-07-19] MEDS: INSULIN HUMULIN R 100 UNIT/ML 3ML SQ SCH ×4 (05:35→23:58)
[2017-07-19] MEDS: IPRATROPIUM/ALBUTEROL SULFATE 3 ML SOLUTION IH SCH ×5 (06:52→23:30)
[2017-07-19] MEDS: ASPIRIN 325 MG TABLET PO SCH (08:36)
[2017-07-19] MEDS: PHENYTOIN 100 MG/4 ML UDCUP PO SCH ×2 (08:36→20:12)
[2017-07-19] MEDS: PANTOPRAZOLE 40 MG/VIAL IVP SCH ×2 (08:36→20:12)
[2017-07-19] MEDS: LISINOPRIL 20 MG TABLET PO SCH (08:37)
[2017-07-19] MEDS ORDERED: LOSA25TA21 PO (12:59)
[2017-07-19] MEDS ORDERED: LEVO500T89 PO (12:59)
[2017-07-19] MEDS ORDERED: INSU100V3 SQ (12:59)
[2017-07-19 16:30] LABS: HEMATOCRIT 25.7 % (36-48)
[2017-07-19] MEDS: EPOETIN ALFA 10,000 UNIT/ML VIAL SQ SCH (20:12)
[2017-07-19] MEDS: ACETAMINOPHEN-CODEINE 300/30MG TAB PO PRN (20:39)
[2017-07-19 20:55] LABS: HEMATOCRIT 23.8 % (36-48)
[2017-07-20] VITALS (18 sets, daily range): BP systolic 103–165; BP diastolic 59–86
[2017-07-20] MEDS: CEFAZOLIN SODIUM 1 GM VIAL IVP SCH ×2 (01:08→09:00)
[2017-07-20] MEDS: INSULIN HUMULIN R 100 UNIT/ML 3ML SQ SCH ×3 (06:00→16:42)
[2017-07-20 06:07] LABS: HEMATOCRIT 22.8 % (36-48); MEAN CORPUSCULAR VOLUME 91.5 fL (79-99); NUCLEATED RED BLOOD CELLS 0.1 % (0.0-0.19); PLATELET COUNT (AUTO) 134 K/uL (130-400); RED BLOOD CELL COUNT(AUTO) 2.49 MIL/uL (4.00-5.50); RED CELL DISTRIBUTION WIDTH 19.8 % (11.0-15.5); WHITE BLOOD COUNT (AUTO) 4.9 K/uL (4.8-10.8)
[2017-07-20 06:22] LABS: CREATININE 2.9 mg/dL (0.5-1.5); POTASSIUM 3.3 mmol/L (3.5-5.1)
[2017-07-20] MEDS: IPRATROPIUM/ALBUTEROL SULFATE 3 ML SOLUTION IH SCH ×3 (06:45→18:34)
[2017-07-20] MEDS: LISINOPRIL 20 MG TABLET PO SCH (08:54)
[2017-07-20] MEDS: ASPIRIN 325 MG TABLET PO SCH (08:54)
[2017-07-20] MEDS: PHENYTOIN 100 MG/4 ML UDCUP PO SCH ×2 (08:55→21:38)
[2017-07-20] MEDS: PANTOPRAZOLE 40 MG/VIAL IVP SCH ×2 (09:00→21:38)
[2017-07-20 12:23] LABS: HEMATOCRIT 25.2 % (36-48); MEAN CORPUSCULAR HEMOGLOBIN 30.5 pg (27.0-33.0); MEAN CORPUSCULAR HGB CONC 33.1 g/dL (32.0-36.0); MEAN CORPUSCULAR VOLUME 92.4 fL (79-99); NUCLEATED RED BLOOD CELLS 0.1 % (0.0-0.19); PLATELET COUNT (AUTO) 155 K/uL (130-400); RED BLOOD CELL COUNT(AUTO) 2.72 MIL/uL (4.00-5.50); RED CELL DISTRIBUTION WIDTH 20.6 % (11.0-15.5); WHITE BLOOD COUNT (AUTO) 5.7 K/uL (4.8-10.8)
[2017-07-20] MEDS: ONDANSETRON HCL 4 MG/2 ML VIAL IV PRN (19:13)
[2017-07-20] MEDS: TRAMADOL HCL 50 MG TABLET PO PRN (19:20)
[2017-07-20] MEDS: LORAZEPAM 2 MG/ML 1 ML VIAL IVP PRN (20:06)
[2017-07-20] MEDS: ATORVASTATIN CALCIUM 40 MG TABLET PO SCH (21:38)
[2017-07-21] MEDS: IPRATROPIUM/ALBUTEROL SULFATE 3 ML SOLUTION IH SCH ×4 (00:32→19:59)
[2017-07-21 03:45] LABS: HEMATOCRIT 22.5 % (36-48); MEAN CORPUSCULAR HEMOGLOBIN 32.7 pg (27.0-33.0); MEAN CORPUSCULAR HGB CONC 35.3 g/dL (32.0-36.0); MEAN CORPUSCULAR VOLUME 92.6 fL (79-99); NUCLEATED RED BLOOD CELLS 0.1 % (0.0-0.19); PLATELET COUNT (AUTO) 148 K/uL (130-400); RED BLOOD CELL COUNT(AUTO) 2.43 MIL/uL (4.00-5.50); RED CELL DISTRIBUTION WIDTH 20.6 % (11.0-15.5); WHITE BLOOD COUNT (AUTO) 4.8 K/uL (4.8-10.8)
[2017-07-21 03:53] LABS: CREATININE 3.6 mg/dL (0.5-1.5); POTASSIUM 3.2 mmol/L (3.5-5.1)
[2017-07-21 04:40] VITALS: BP 144/77
[2017-07-21] MEDS: INSULIN HUMULIN R 100 UNIT/ML 3ML SQ SCH ×5 (05:20→21:00)
[2017-07-21 08:00] VITALS: BP 147/89
[2017-07-21] MEDS: PHENYTOIN 100 MG/4 ML UDCUP PO SCH ×2 (10:57→21:31)
[2017-07-21] MEDS: ASPIRIN 325 MG TABLET PO SCH (10:57)
[2017-07-21 11:00] VITALS: BP 150/75
[2017-07-21] MEDS: LISINOPRIL 20 MG TABLET PO SCH (11:00)
[2017-07-21] MEDS: PANTOPRAZOLE 40 MG/VIAL IVP SCH ×2 (11:00→21:31)
[2017-07-21] MEDS: HEPARIN SODIUM 5000UNIT/ML 1ML VIAL IJ PRN (11:06)
[2017-07-21] MEDS: SODIUM CHLORIDE 0.9% 1000ML 1,000 ML IV PRN (11:07)
[2017-07-21] MEDS: DiphenhydrAMINE HCL 50 MG/ML VIAL IV PRN (12:27)
[2017-07-21] MEDS: EPOETIN ALFA 10,000 UNIT/ML VIAL SQ SCH (14:54)
[2017-07-21] MEDS: METOPROLOL TARTRATE 25 MG TAB PO SCH ×2 (15:50→21:00)
[2017-07-21 16:13] VITALS: BP 118/74
[2017-07-21 20:00] VITALS: BP 112/57
[2017-07-21] MEDS: ATORVASTATIN CALCIUM 40 MG TABLET PO SCH (21:00)
[2017-07-21] MEDS ORDERED: ATORVASTATIN CALCIUM 20 MG TABLET ONE (21:29)
[2017-07-22] VITALS (7 sets, daily range): BP systolic 104–130; BP diastolic 59–76
[2017-07-22] MEDS ORDERED: DIPHENHYDRAMINE HCL 25 MG CAPSULE ONE (00:05)
[2017-07-22] MEDS ORDERED: DiphenhydrAMINE HCL 50 MG/ML VIAL ONE (00:11)
[2017-07-22] MEDS: DiphenhydrAMINE HCL 50 MG/ML VIAL IV PRN (00:12)
[2017-07-22] MEDS: IPRATROPIUM/ALBUTEROL SULFATE 3 ML SOLUTION IH SCH ×5 (00:45→23:53)
[2017-07-22] MEDS: INSULIN HUMULIN R 100 UNIT/ML 3ML SQ SCH ×3 (05:55→17:08)
[2017-07-22] MEDS: PANTOPRAZOLE 40 MG/VIAL IVP SCH ×2 (09:08→21:15)
[2017-07-22] MEDS: PHENYTOIN 100 MG/4 ML UDCUP PO SCH ×2 (09:14→21:16)
[2017-07-22] MEDS: LISINOPRIL 20 MG TABLET PO SCH (09:15)
[2017-07-22] MEDS: METOPROLOL TARTRATE 25 MG TAB PO SCH ×2 (11:32→21:00)
[2017-07-22] MEDS: ASPIRIN 325 MG TABLET PO SCH (11:32)
[2017-07-22] MEDS: ONDANSETRON HCL 4 MG/2 ML VIAL IV PRN (11:42)
[2017-07-22] MEDS: ATORVASTATIN CALCIUM 40 MG TABLET PO SCH (21:00)
[2017-07-23] MEDS ORDERED: ATORVASTATIN CALCIUM 20 MG TABLET ONE ×2 (00:26→23:51)
[2017-07-23 03:48] VITALS: BP 143/79
[2017-07-23 04:34] LABS: HEMATOCRIT 23.5 % (36-48); MEAN CORPUSCULAR HEMOGLOBIN 31.9 pg (27.0-33.0); MEAN CORPUSCULAR HGB CONC 34.1 g/dL (32.0-36.0); MEAN CORPUSCULAR VOLUME 93.5 fL (79-99); NUCLEATED RED BLOOD CELLS 0.1 % (0.0-0.19); PLATELET COUNT (AUTO) 129 K/uL (130-400); RED BLOOD CELL COUNT(AUTO) 2.52 MIL/uL (4.00-5.50); RED CELL DISTRIBUTION WIDTH 21.3 % (11.0-15.5); WHITE BLOOD COUNT (AUTO) 5.2 K/uL (4.8-10.8)
[2017-07-23 04:39] LABS: CREATININE 3.4 mg/dL (0.5-1.5); PHENYTOIN (DILANTIN) 24.4 mcg/mL (10.0-20.0)
[2017-07-23 04:40] LABS: POTASSIUM 2.9 mmol/L (3.5-5.1)
[2017-07-23] MEDS ORDERED: POTASSIUM CHLORIDE 20MEQ/100ML 100 ML IV PRN (05:30)
[2017-07-23] MEDS ORDERED: LIDOCAINE HCL-MPF 1% 2ML VIAL IVP PRN (05:30)
[2017-07-23] MEDS ORDERED: LIDOCAINE HCL-MPF 1% 2ML VIAL ONE (05:36)
[2017-07-23] MEDS ORDERED: POTASSIUM CHLORIDE 20MEQ/100ML 100 ML IV ONE (05:42)
[2017-07-23] MEDS: INSULIN HUMULIN R 100 UNIT/ML 3ML SQ SCH ×5 (05:55→22:08)
[2017-07-23] MEDS: IPRATROPIUM/ALBUTEROL SULFATE 3 ML SOLUTION IH SCH ×4 (06:07→23:18)
[2017-07-23 07:38] VITALS: BP 137/72
[2017-07-23] MEDS: PHENYTOIN 100 MG/4 ML UDCUP PO SCH ×2 (09:00→23:54)
[2017-07-23] MEDS: LISINOPRIL 20 MG TABLET PO SCH (09:14)
[2017-07-23] MEDS: ASPIRIN 325 MG TABLET PO SCH (09:14)
[2017-07-23] MEDS: PANTOPRAZOLE 40 MG/VIAL IVP SCH ×2 (09:14→19:51)
[2017-07-23] MEDS: METOPROLOL TARTRATE 25 MG TAB PO SCH ×2 (09:15→19:51)
[2017-07-23 11:32] VITALS: BP 137/70
[2017-07-23] MEDS: LORATADINE 10 MG TABLET PO SCH (11:45)
[2017-07-23 16:52] VITALS: BP 139/86
[2017-07-23 19:44] VITALS: BP 136/76
[2017-07-23] MEDS: ATORVASTATIN CALCIUM 40 MG TABLET PO SCH (21:00)
[2017-07-23 23:32] VITALS: BP 138/87
[2017-07-24 03:52] VITALS: BP 151/60
[2017-07-24 04:25] LABS: HEMATOCRIT 25.5 % (36-48); MEAN CORPUSCULAR HEMOGLOBIN 31.3 pg (27.0-33.0); MEAN CORPUSCULAR HGB CONC 33.5 g/dL (32.0-36.0); MEAN CORPUSCULAR VOLUME 93.7 fL (79-99); NUCLEATED RED BLOOD CELLS 0.1 % (0.0-0.19); PLATELET COUNT (AUTO) 135 K/uL (130-400); RED BLOOD CELL COUNT(AUTO) 2.73 MIL/uL (4.00-5.50); RED CELL DISTRIBUTION WIDTH 21.3 % (11.0-15.5); WHITE BLOOD COUNT (AUTO) 5.2 K/uL (4.8-10.8)
[2017-07-24 04:43] LABS: CREATININE 4.1 mg/dL (0.5-1.5); PHENYTOIN (DILANTIN) 25.1 mcg/mL (10.0-20.0); PHOSPHORUS 2.5 mg/dL (2.5-4.9); POTASSIUM 3.3 mmol/L (3.5-5.1)
[2017-07-24] MEDS: INSULIN HUMULIN R 100 UNIT/ML 3ML SQ SCH ×3 (05:51→18:00)
[2017-07-24] MEDS: IPRATROPIUM/ALBUTEROL SULFATE 3 ML SOLUTION IH SCH ×3 (06:21→18:49)
[2017-07-24 07:30] VITALS: BP 150/95
[2017-07-24 11:32] VITALS: BP 135/77
[2017-07-24] MEDS: ASPIRIN 325 MG TABLET PO SCH (13:43)
[2017-07-24] MEDS: PHENYTOIN 100 MG/4 ML UDCUP PO SCH ×2 (13:44→21:38)
[2017-07-24] MEDS: PANTOPRAZOLE 40 MG/VIAL IVP SCH (13:44)
[2017-07-24] MEDS: LORATADINE 10 MG TABLET PO SCH (13:45)
[2017-07-24] MEDS: METOPROLOL TARTRATE 25 MG TAB PO SCH ×2 (13:45→21:37)
[2017-07-24] MEDS: EPOETIN ALFA 10,000 UNIT/ML VIAL SQ SCH (13:45)
[2017-07-24] MEDS: LISINOPRIL 20 MG TABLET PO SCH (13:45)
[2017-07-24 16:20] VITALS: BP 128/58
== END 2017-07-24 22:15 | DRG 853 ==
LOC: EDH 12:18 → EDHIP 13:48 → 2BH 16:13 → 2AH 07-17 15:34 → 2BH 07-17 16:53 → 2DH 07-18 19:37 → 2BH 07-18 19:43 → UNDODISIN 07-21 19:04 → 2DH 07-21 20:14
PROVIDERS: ADMIT Internal Medicine Pulmonary Disease; ATTEND Internal Medicine Pulmonary Disease
PROC: B4101ZZ Fluoroscopy of Abdominal Aorta using Low Osmolar Contrast (ICD-10-PCS; principal; 2017-07-07)
PROC: B4141ZZ Fluoroscopy of Superior Mesenteric Artery using Low Osmolar Contrast (ICD-10-PCS; 2017-07-07)
PROC: 5A1955Z Respiratory Ventilation, Greater than 96 Consecutive Hours (ICD-10-PCS; 2017-07-07)
PROC: 30233N1 Transfusion of Nonautologous Red Blood Cells into Peripheral Vein, Percutaneous Approach (ICD-10-PCS; 2017-07-07)
PROC: 30233K1 Transfusion of Nonautologous Frozen Plasma into Peripheral Vein, Percutaneous Approach (ICD-10-PCS; 2017-07-07)
PROC: 5A1D70Z Performance of Urinary Filtration, Intermittent, Less than 6 Hours Per Day (ICD-10-PCS; 2017-07-07)
PROC: 5A1D70Z Performance of Urinary Filtration, Intermittent, Less than 6 Hours Per Day (ICD-10-PCS; 2017-07-10)
PROC: 5A1D70Z Performance of Urinary Filtration, Intermittent, Less than 6 Hours Per Day (ICD-10-PCS; 2017-07-12)
PROC: B41B1ZZ Fluoroscopy of Other Intra-Abdominal Arteries using Low Osmolar Contrast (ICD-10-PCS; 2017-07-13)
PROC: B4151ZZ Fluoroscopy of Inferior Mesenteric Artery using Low Osmolar Contrast (ICD-10-PCS; 2017-07-13)
PROC: B4121ZZ Fluoroscopy of Hepatic Artery using Low Osmolar Contrast (ICD-10-PCS; 2017-07-13)
PROC: 05HM33Z Insertion of Infusion Device into Right Internal Jugular Vein, Percutaneous Approach (ICD-10-PCS; 2017-07-13)
PROC: 5A1D70Z Performance of Urinary Filtration, Intermittent, Less than 6 Hours Per Day (ICD-10-PCS; 2017-07-13)
PROC: 0DB80ZZ Excision of Small Intestine, Open Approach (ICD-10-PCS; 2017-07-13)
PROC: 5A1D70Z Performance of Urinary Filtration, Intermittent, Less than 6 Hours Per Day (ICD-10-PCS; 2017-07-17)
PROC: 5A1D70Z Performance of Urinary Filtration, Intermittent, Less than 6 Hours Per Day (ICD-10-PCS; 2017-07-19)
PROC: 5A1D70Z Performance of Urinary Filtration, Intermittent, Less than 6 Hours Per Day (ICD-10-PCS; 2017-07-21)
PROC: 5A1D70Z Performance of Urinary Filtration, Intermittent, Less than 6 Hours Per Day (ICD-10-PCS; 2017-07-24)
DX: A41.9 Sepsis, unspecified organism (principal); D65 Disseminated intravascular coagulation [defibrination syndrome]; I63.9 Cerebral infarction, unspecified; J96.00 Acute respiratory failure, unspecified whether with hypoxia or hypercapnia; M72.6 Necrotizing fasciitis; Z99.11 Dependence on respirator [ventilator] status; R57.1 Hypovolemic shock; R65.21 Severe sepsis with septic shock; Z93.0 Tracheostomy status; D70.9 Neutropenia, unspecified; I12.0 Hypertensive chronic kidney disease with stage 5 chronic kidney disease or end stage renal disease; J96.21 Acute and chronic respiratory failure with hypoxia; G93.40 Encephalopathy, unspecified; R57.8 Other shock; N18.6 End stage renal disease; E44.0 Moderate protein-calorie malnutrition; I13.2 Hypertensive heart and chronic kidney disease with heart failure and with stage 5 chronic kidney disease, or end stage renal disease; K92.1 Melena; E46 Unspecified protein-calorie malnutrition; D62 Acute posthemorrhagic anemia; K12.2 Cellulitis and abscess of mouth; L97.929 Non-pressure chronic ulcer of unspecified part of left lower leg with unspecified severity; L02.11 Cutaneous abscess of neck; L03.221 Cellulitis of neck; N17.9 Acute kidney failure, unspecified; E87.1 Hypo-osmolality and hyponatremia; I50.22 Chronic systolic (congestive) heart failure; K66.8 Other specified disorders of peritoneum; E11.22 Type 2 diabetes mellitus with diabetic chronic kidney disease; Z99.2 Dependence on renal dialysis; D64.9 Anemia, unspecified; D50.0 Iron deficiency anemia secondary to blood loss (chronic); D69.59 Other secondary thrombocytopenia; E11.622 Type 2 diabetes mellitus with other skin ulcer; E11.65 Type 2 diabetes mellitus with hyperglycemia; E87.6 Hypokalemia; I25.10 Atherosclerotic heart disease of native coronary artery without angina pectoris; I25.5 Ischemic cardiomyopathy; K28.9 Gastrojejunal ulcer, unspecified as acute or chronic, without hemorrhage or perforation; R13.12 Dysphagia, oropharyngeal phase; I69.392 Facial weakness following cerebral infarction; Q43.0 Meckel's diverticulum (displaced) (hypertrophic); R56.9 Unspecified convulsions; Z74.01 Bed confinement status; R62.7 Adult failure to thrive; Z79.2 Long term (current) use of antibiotics; Z79.82 Long term (current) use of aspirin; Z86.2 Personal history of diseases of the blood and blood-forming organs and certain disorders involving the immune mechanism; Z91.19 Patient's noncompliance with other medical treatment and regimen; Z93.1 Gastrostomy status
CPT/HCPCS: 36245; 36246; 36415; 36430; 36558; 36589; 36600; 70450; 70551; 71045; 74177; 75726; 75774; 77001; 78278; 80048; 80053; 80185; 82550; 82803; 82948; 83735; 84100; 84484; 85025; 85027; 85378; 85384; 85610; 85730; 86850; 86900; 86901; 86922; 86927; 88307; 90935; 92597; 92610; 93005; 94002; 94003; 94640; 94664; 97039; A4218; A4344; A6250; A9512; C1750; C1769; C1894; C9113; J0360; J0690; J0885; J1100; J1165; J1200; J1644; J1815; J2001; J2060; J2250; J2405; J2597; J2704; J2795; J2997; J3010; J3410; J3430; J3480; J3490; J7030; J7040; J7070; P9012; P9016; P9017; P9046; Q0163; Q9967

== ENCOUNTER 2017-08-14 14:37 | Day surgery (SDC) | payer BC ==
[~2017-08-14] VITALS: Ht 157.5 cm; Wt 62.1 kg
[~2017-08-14 14:37] MED LIST: INSU100V3 SQ; LEVO500T89 PO; LOSA25TA21 PO
[2017-08-14] MEDS ORDERED: LIDOCAINE HCL 1% MDV 50ML VIAL ONE (15:44)
[2017-08-14 15:58] VITALS: BP 116/60
[2017-08-14 16:34] LABS: INR 1.15 (0.85-1.15); PARTIAL THROMBOPLASTIN TIME 33.6 SEC (26.3-35.5)
[2017-08-14 17:40] VITALS: BP 144/78
[2017-08-14 17:55] VITALS: BP 141/72
[2017-08-14 18:10] VITALS: BP 142/72
[2017-08-14 18:29] VITALS: BP 146/72
== END 2017-08-14 18:30 ==
LOC: CLH 14:37
PROVIDERS: ATTEND Internal Medicine Nephrology
DX: Z45.2 Encounter for adjustment and management of vascular access device (principal); R06.02 Shortness of breath; I12.9 Hypertensive chronic kidney disease with stage 1 through stage 4 chronic kidney disease, or unspecified chronic kidney disease; E11.22 Type 2 diabetes mellitus with diabetic chronic kidney disease; Z99.2 Dependence on renal dialysis; D64.9 Anemia, unspecified; Z83.3 Family history of diabetes mellitus; J96.10 Chronic respiratory failure, unspecified whether with hypoxia or hypercapnia; N18.6 End stage renal disease; E44.1 Mild protein-calorie malnutrition
CPT/HCPCS: 36415; 36589; 71045; 82948; 85610; 85730; 87070; A4606; J3490

== ENCOUNTER 2017-08-17 13:39 | Day surgery (SDC) | payer BC ==
[2017-08-17] MEDS ORDERED: LIDOCAINE HCL 2% 20ML ONE (15:28)
[2017-08-17] MEDS ORDERED: SODIUM BICARB 50MEQ 50ML VIAL ONE (15:28)
[2017-08-17 16:25] VITALS: BP 145/87
[2017-08-17 16:40] VITALS: BP 142/88
[2017-08-17 16:55] VITALS: BP 144/78
[2017-08-17 17:14] VITALS: BP 140/76
== END 2017-08-17 17:20 | disposition home or self-care (01) ==
LOC: CLH 13:39
PROVIDERS: ATTEND Internal Medicine Nephrology
DX: Z45.2 Encounter for adjustment and management of vascular access device (principal); M72.6 Necrotizing fasciitis; I10 Essential (primary) hypertension; E11.9 Type 2 diabetes mellitus without complications; J96.01 Acute respiratory failure with hypoxia; Z79.899 Other long term (current) drug therapy
CPT/HCPCS: 36556; 77001; C1752; C1894; J1644; J3490 ×2

== ENCOUNTER 2019-03-22 12:17 | Inpatient (IN) | payer MEDICARE ==
[~2019-03-22] VITALS: Ht 157.5 cm; Wt 55.2 kg
[~2019-03-22 12:17] MED LIST changes: +ASPI-1197 PO; +ATOR40TA71 PO; +CLOP75TA32 PO; +FOLI1TAB85 PO; -INSU100V3 SQ; +ISOS30TA6 PO; +LABE200T5 PO; -LEVO500T89 PO; +LOSA100T58 PO; -LOSA25TA21 PO; +METO25TA6 PO; +MINO2.5T3 PO; +PANT40TA25 PO; +SEVE800T27 PO
[2019-03-22 13:05] LABS: BASOPHILS % (AUTO) 0.1 % (0.0-5.0); EOSINOPHILS % (AUTO) 0.2 % (0.0-8.0); HEMATOCRIT 28.9 % (36-48); LYMPHOCYTES % (AUTO) 1.7 % (21.0-51.0); MEAN CORPUSCULAR HEMOGLOBIN 32.6 pg (27.0-33.0); MEAN CORPUSCULAR HGB CONC 34.4 g/dL (32.0-36.0); MONOCYTES % (AUTO) 3.4 % (3.0-13.0); NEUTROPHILS % (AUTO) 94.6 % (40.0-77.0); NUCLEATED RED BLOOD CELLS 0.1 % (0.0-0.19); PLATELET COUNT (AUTO) 69 K/uL (130-400); RED BLOOD CELL COUNT(AUTO) 3.04 MIL/uL (4.00-5.50)
[2019-03-22 13:15] LABS: INR 1.01 (0.85-1.15); PARTIAL THROMBOPLASTIN TIME 33.9 SEC (26.3-35.5); PROTHROMBIN TIME 10.6 SEC (9.6-11.6)
[2019-03-22 13:19] LABS: APPEARANCE,URINE Cloudy (CLEAR); BILIRUBIN,URINE Negative (NEGATIVE); COLOR,URINE Yellow (YELLOW); GLUCOSE, URINE (UA) TRACE mg/dL (NEGATIVE); KETONES,URINE Negative (NEGATIVE); LEUKOCYTE ESTERASE ,URINE Moderate (NEGATIVE); NITRATE,URINE Negative (NEGATIVE); OCCULT BLOOD,URINE Large (NEGATIVE); PH,URINE 8.5 (5.0-8.0); PROTEIN,URINE 300 mg/dL (NEGATIVE)
[2019-03-22 13:25] LABS: RBC,URINE 0-1 /HPF (0-1)
[2019-03-22 13:26] LABS: BACTERIA,URINE Few /HPF (None Seen); SQUAMOUS EPITHELIAL CELL,UR Few /HPF (0-2)
[2019-03-22 13:27] LABS: CARBON DIOXIDE 23 mmol/L (21-32); CHLORIDE 92 mmol/L (101-111); GLOMERULAR FILTR. RATE CALC 8 mL/min (>60); GLUCOSE,RANDOM 145 mg/dL (70-105); POTASSIUM 3.9 mmol/L (3.5-5.1); SODIUM SERUM 129 mmol/L (136-145); UREA NITROGEN, BLOOD 44 mg/dL (7-18)
[2019-03-22 13:53] LABS: ALANINE AMINOTRANSFERASE 62 U/L (12-78); ALBUMIN 2.7 g/dL (3.5-5.0); ASPARTATE AMINOTRANSFERASE 65 U/L (10-37); BILIRUBIN,TOTAL 0.5 mg/dL (0.2-1.0); CREATINE KINASE, TOTAL 336 U/L (21-232); MYOGLOBIN 1028 ng/mL (10-92); TOTAL PROTEIN, SERUM 6.4 g/dL (6.0-8.3); TROPONIN I < 0.04 ng/mL (0.00-0.06)
[2019-03-22] MEDS ORDERED: CEFTRIAXONE SODIUM 1 GM ONE (14:03)
[2019-03-22] MEDS ORDERED: ACETAMINOPHEN EXTRA STRENGTH 500 MG TABLET ONE (14:03)
[2019-03-22] MEDS ORDERED: SODIUM CHLORIDE 0.9% 500ML 500 ML IV ONE ×2 (14:04→14:20)
[2019-03-22] MEDS ORDERED: MEROPENEM 1 GM VIAL ONE (14:20)
[2019-03-22] MEDS ORDERED: GUAIFENESIN-DM 200/20 MG 10 ML PO PRN (16:15)
[2019-03-22] MEDS ORDERED: ONDANSETRON HCL 4 MG/2 ML VIAL IV PRN (16:15)
[2019-03-22] MEDS ORDERED: LACTULOSE 20 GM/30 ML UDCUP PO PRN (16:15)
[2019-03-22] MEDS ORDERED: MEROPENEM 500 MG VIAL IV SCH (16:15)
[2019-03-22] MEDS ORDERED: HYDRALAZINE HCL 20 MG/ML VIAL IV PRN (16:15)
[2019-03-22] MEDS ORDERED: ACETAMINOPHEN 325 MG TAB PO PRN (16:15)
[2019-03-22] MEDS ORDERED: RENAL DOSE IV PRN (16:45)
[2019-03-22 17:15] VITALS: BP 95/50
[2019-03-22] MEDS: IPRATROPIUM/ALBUTEROL SULFATE 3 ML SOLUTION IH SCH ×2 (17:40→23:14)
[2019-03-22] MEDS ORDERED: DOXYCYCLINE 100MG+NS 250ML 250 ML IV SCH ×2 (19:45→23:00)
[2019-03-22] MEDS: INSULIN HUMULIN R 100 UNIT/ML 3ML SQ SCH (21:00)
[2019-03-22] MEDS ORDERED: LINEZOLID 600 MG/ISO-OSM 300 ML IV SCH (21:00)
[2019-03-22 21:06] VITALS: BP 135/69
[2019-03-23 00:18] VITALS: BP 111/67
[2019-03-23 04:30] VITALS: BP 155/88
[2019-03-23 04:52] LABS: BASOPHILS % (AUTO) 0.1 % (0.0-5.0); EOSINOPHILS % (AUTO) 1.4 % (0.0-8.0); HEMATOCRIT 26.9 % (36-48); LYMPHOCYTES % (AUTO) 2.4 % (21.0-51.0); MEAN CORPUSCULAR HEMOGLOBIN 33.1 pg (27.0-33.0); MEAN CORPUSCULAR HGB CONC 34.6 g/dL (32.0-36.0); MEAN CORPUSCULAR VOLUME 95.8 fL (79-99); MONOCYTES % (AUTO) 4.4 % (3.0-13.0); NEUTROPHILS % (AUTO) 91.7 % (40.0-77.0); PLATELET COUNT (AUTO) 61 K/uL (130-400); RED BLOOD CELL COUNT(AUTO) 2.81 MIL/uL (4.00-5.50); RED CELL DISTRIBUTION WIDTH 14.9 % (11.0-15.5); WHITE BLOOD COUNT (AUTO) 7.3 K/uL (4.8-10.8)
[2019-03-23 05:42] LABS: ALBUMIN 2.3 g/dL (3.5-5.0); BILIRUBIN,TOTAL 0.5 mg/dL (0.2-1.0); CREATININE 6.7 mg/dL (0.5-1.5); PHOSPHORUS 4.1 mg/dL (2.5-4.9); POTASSIUM 3.7 mmol/L (3.5-5.1); TOTAL PROTEIN, SERUM 5.6 g/dL (6.0-8.3)
[2019-03-23] MEDS: INSULIN HUMULIN R 100 UNIT/ML 3ML SQ SCH ×2 (06:05→11:30)
[2019-03-23] MEDS: IPRATROPIUM/ALBUTEROL SULFATE 3 ML SOLUTION IH SCH ×4 (06:22→23:24)
[2019-03-23 08:00] VITALS: BP 151/88
[2019-03-23] MEDS ORDERED: OSELTAMIVIR PHOSPHATE 75 MG CAP PO SCH ×2 (09:00)
[2019-03-23] MEDS ORDERED: 0.9% SODIUM CHLORIDE 1000 ML IV BAG IV PRN (10:30)
[2019-03-23] MEDS ORDERED: NITROGLYCERIN 0.4 MG SL TAB SL PRN (10:30)
[2019-03-23] MEDS ORDERED: PHARMACY COMMUNICATION MISC SCH (10:30)
[2019-03-23] MEDS ORDERED: SODIUM CHLORIDE 0.9% 1000ML 1,000 ML IV PRN (10:30)
[2019-03-23] MEDS ORDERED: ACETAMINOPHEN 325 MG TAB PO PRN (10:30)
[2019-03-23] MEDS ORDERED: HEPARIN SODIUM 5000UNIT/ML 1ML VIAL IJ PRN ×2 (10:30)
[2019-03-23] MEDS ORDERED: DAPTOMYCIN 500 MG in SODIUM CHLORIDE 0.9% 50 ML IV SCH (11:00)
[2019-03-23] MEDS ORDERED: COMPOUND IV REFRIGERATED 1 EACH IVSOLN MISC PRN (11:00)
[2019-03-23] MEDS: DAPTOMYCIN 500 MG in SODIUM CHLORIDE 0.9% 50 ML IV SCH (11:57)
[2019-03-23 11:58] VITALS: BP 194/81
[2019-03-23] MEDS ORDERED: MEGESTROL 400 MG/10 ML UDCUP PO SCH (13:00)
[2019-03-23] MEDS ORDERED: LIDOCAINE HCL 1% MDV 50ML VIAL ONE (14:30)
--- NOTE | 2019-03-23 14:34 | NUR ---
Demario from 2 D echo here , but Patient being taken to IR for removal of Permacath stat. Demario states he will return tomorrow for 2decho
--- NOTE | 2019-03-23 14:44 | NUR ---
Pt taken to IR for Right Permacath removal as per Dr. Estrada for gram + BC. Addendum: 03/23/19 at 1908 by ROMMEL PATTERSON RN RN Correction: Patient will have Right Permacath removed by IR / Dr. Asencio at bedside at this time
--- NOTE | 2019-03-23 14:55 | NUR ---
Pt prepped with chloraprep to permacath site. Sterile towels placed. site without redness or drainage. time out performed . See time out form
--- NOTE | 2019-03-23 15:15 | NUR ---
CATHETER TIP DROPPED OFF TO LAB/COURTNEY.
--- NOTE | 2019-03-23 15:15 | NUR ---
Patient had Removal of PErmacath at bedside by IR/Dr. Asencio. Dressing to Right chest wall clean dry and intact. Patient in no distress. VS WNL and pt stable. Will continue to monitor.
[2019-03-23] MEDS: ACETAMINOPHEN 325 MG TAB PO PRN (15:38)
[2019-03-23] MEDS: MEROPENEM 500 MG VIAL IV SCH (15:39)
[2019-03-23] MEDS: FOLIC ACID/VITAMIN B COMP W-C 1 MG CAP/TAB PO SCH (15:42)
[2019-03-23] MEDS: FAMOTIDINE/PF 20 MG/2 ML VIAL IV SCH (15:42)
--- NOTE | 2019-03-23 15:50 | NUR ---
Demario returned for 2 d echo but informed patient will have to remain sitting up for the next 3 hours. Demario states he will return tomorrow.
[2019-03-23 16:00] VITALS: BP 152/64
--- NOTE | 2019-03-23 18:05 | NUR ---
INITIAL Met w pt this afternoon to discuss dcp. Pt mentions that she lives w her dtr Ilsa. Prior to admission she was independent w ambulation and ADLs. She attends [facility] for her hemodialysis needs. Per pt her son in law provides transportation. Pt state she does not own any DME or receive other services. Per pt she feels safe and comfortable to return home at sc. CM to continue to follow and wait for Md recommendations. Addendum: 03/24/19 at 1807 by DOLORES MOORE Amended: Links added.
[2019-03-23 20:00] VITALS: BP 135/66
[2019-03-24] VITALS: BP 161/70
[2019-03-24 04:00] VITALS: BP 164/93
[2019-03-24 05:59] LABS: BASOPHILS % (AUTO) 0.1 % (0.0-5.0); EOSINOPHILS % (AUTO) 1.3 % (0.0-8.0); HEMATOCRIT 27.8 % (36-48); MEAN CORPUSCULAR HEMOGLOBIN 32.8 pg (27.0-33.0); MEAN CORPUSCULAR HGB CONC 34.5 g/dL (32.0-36.0); MEAN CORPUSCULAR VOLUME 94.9 fL (79-99); MONOCYTES % (AUTO) 9.1 % (3.0-13.0); NEUTROPHILS % (AUTO) 83.5 % (40.0-77.0); PLATELET COUNT (AUTO) 64 K/uL (130-400); RED BLOOD CELL COUNT(AUTO) 2.93 MIL/uL (4.00-5.50); WHITE BLOOD COUNT (AUTO) 4.9 K/uL (4.8-10.8)
[2019-03-24 06:12] LABS: ALBUMIN 2.2 g/dL (3.5-5.0); BILIRUBIN,TOTAL 0.5 mg/dL (0.2-1.0); CREATININE 4.8 mg/dL (0.5-1.5); PHOSPHORUS 3.8 mg/dL (2.5-4.9); POTASSIUM 3.3 mmol/L (3.5-5.1); TOTAL PROTEIN, SERUM 5.8 g/dL (6.0-8.3)
[2019-03-24] MEDS: IPRATROPIUM/ALBUTEROL SULFATE 3 ML SOLUTION IH SCH ×4 (06:38→23:08)
[2019-03-24 08:00] VITALS: BP 162/81
[2019-03-24] MEDS: MEGESTROL 400 MG/10 ML UDCUP PO SCH (08:50)
[2019-03-24] MEDS: FOLIC ACID/VITAMIN B COMP W-C 1 MG CAP/TAB PO SCH (08:52)
[2019-03-24] MEDS: FAMOTIDINE/PF 20 MG/2 ML VIAL IV SCH (08:52)
[2019-03-24 12:00] VITALS: BP 165/87
[2019-03-24] MEDS ORDERED: LABETALOL HCL 200 MG TABLET PO SCH (12:15)
[2019-03-24 16:00] VITALS: BP 162/86
[2019-03-24] MEDS: MEROPENEM 500 MG VIAL IV SCH (17:10)
[2019-03-24] MEDS: CLOPIDOGREL BISULFATE 75 MG TAB PO SCH (17:12)
[2019-03-24 20:00] VITALS: BP 152/88
[2019-03-24] MEDS: ACETAMINOPHEN 325 MG TAB PO PRN (22:20)
[2019-03-24] MEDS: ISOSORBIDE MONO 30MG TAB SR PO SCH (22:21)
[2019-03-24] MEDS: LABETALOL HCL 200 MG TABLET PO SCH (22:21)
[2019-03-25] VITALS (7 sets, daily range): BP systolic 139–190; BP diastolic 68–88
[2019-03-25 06:21] LABS: BASOPHILS % (AUTO) 0.4 % (0.0-5.0); EOSINOPHILS % (AUTO) 3.5 % (0.0-8.0); HEMATOCRIT 27.2 % (36-48); LYMPHOCYTES % (AUTO) 8.1 % (21.0-51.0); MEAN CORPUSCULAR HEMOGLOBIN 32.7 pg (27.0-33.0); MEAN CORPUSCULAR HGB CONC 34.1 g/dL (32.0-36.0); MEAN CORPUSCULAR VOLUME 95.7 fL (79-99); MONOCYTES % (AUTO) 11.1 % (3.0-13.0); NEUTROPHILS % (AUTO) 76.9 % (40.0-77.0); PLATELET COUNT (AUTO) 82 K/uL (130-400); RED BLOOD CELL COUNT(AUTO) 2.84 MIL/uL (4.00-5.50); RED CELL DISTRIBUTION WIDTH 14.8 % (11.0-15.5); WHITE BLOOD COUNT (AUTO) 6.7 K/uL (4.8-10.8)
[2019-03-25] MEDS: IPRATROPIUM/ALBUTEROL SULFATE 3 ML SOLUTION IH SCH ×4 (06:23→23:06)
[2019-03-25 06:26] LABS: INR 0.9 (0.85-1.15); PROTHROMBIN TIME 9.5 SEC (9.6-11.6)
[2019-03-25 06:46] LABS: ALBUMIN 2.1 g/dL (3.5-5.0); BILIRUBIN,TOTAL 0.5 mg/dL (0.2-1.0); CREATININE 6.7 mg/dL (0.5-1.5); TOTAL PROTEIN, SERUM 5.6 g/dL (6.0-8.3)
[2019-03-25 07:17] LABS: POTASSIUM 3.3 mmol/L (3.5-5.1)
[2019-03-25] MEDS: MEGESTROL 400 MG/10 ML UDCUP PO SCH (08:56)
[2019-03-25] MEDS: FOLIC ACID/VITAMIN B COMP W-C 1 MG CAP/TAB PO SCH (08:57)
[2019-03-25] MEDS: LOSARTAN 100 MG TABLET PO SCH (08:57)
[2019-03-25] MEDS: ASPIRIN 81MG TAB.CHEW PO SCH (08:57)
[2019-03-25] MEDS: FAMOTIDINE/PF 20 MG/2 ML VIAL IV SCH (08:58)
[2019-03-25] MEDS: LABETALOL HCL 200 MG TABLET PO SCH ×2 (09:00→20:20)
[2019-03-25] MEDS ORDERED: FOLIC ACID/VITAMIN B COMP W-C 1 MG CAP/TAB PO SCH (09:00)
--- NOTE | 2019-03-25 10:00 | NUR ---
DYSPHAGIA EVAL COMPLETE. -S/S OF ASPIRATION. RECOMMEND REGULAR, THIN LIQUID DIET; PILLS WHOLE WITH LIQUIDS. Addendum: 03/25/19 at 1206 by FLORENCIA MENDOZA, [facility] Amended: Links added.
[2019-03-25] MEDS: DAPTOMYCIN 500 MG in SODIUM CHLORIDE 0.9% 50 ML IV SCH (11:53)
[2019-03-25] MEDS ORDERED: SODIUM CHLORIDE 0.9% 100 ML IV ONE (12:03)
--- NOTE | 2019-03-25 15:23 | NUR ---
CM Note: pt declined placement. CM met with pt discussed MD recommendation for short term placement rehab, pt declined at this time, prefers to go back home. Pt verbalized she will follow up with PCP for possible home w/HH for PT instead. Pt lives w/daughter, daughter able to assist with transportation and needs. Primary nurse aware. Dc plan to home once stable. CM to cont to follow up.
[2019-03-25] MEDS: CLOPIDOGREL BISULFATE 75 MG TAB PO SCH (16:41)
[2019-03-25] MEDS: MEROPENEM 500 MG VIAL IV SCH (16:41)
[2019-03-25] MEDS: ISOSORBIDE MONO 30MG TAB SR PO SCH (20:21)
[2019-03-25] MEDS: ACETAMINOPHEN 325 MG TAB PO PRN (23:00)
[2019-03-26] VITALS (12 sets, daily range): BP systolic 127–179; BP diastolic 69–95
[2019-03-26 05:14] LABS: HEMATOCRIT 26.4 % (36-48); MEAN CORPUSCULAR HEMOGLOBIN 32.2 pg (27.0-33.0); MEAN CORPUSCULAR HGB CONC 33.9 g/dL (32.0-36.0); MEAN CORPUSCULAR VOLUME 94.9 fL (79-99); PLATELET COUNT (AUTO) 109 K/uL (130-400); RED BLOOD CELL COUNT(AUTO) 2.78 MIL/uL (4.00-5.50); RED CELL DISTRIBUTION WIDTH 14.9 % (11.0-15.5); WHITE BLOOD COUNT (AUTO) 5.4 K/uL (4.8-10.8)
[2019-03-26 05:18] LABS: INR 0.89 (0.85-1.15); PROTHROMBIN TIME 9.4 SEC (9.6-11.6)
[2019-03-26 05:46] LABS: PHOSPHORUS 3.6 mg/dL (2.5-4.9); POTASSIUM 3.7 mmol/L (3.5-5.1)
[2019-03-26 05:51] LABS: CREATININE 8.4 mg/dL (0.5-1.5)
[2019-03-26 06:10] LABS: HEPATITIS A ANTIBODY IGM Negative (Negative); HEPATITIS B CORE IGM Negative (Negative); HEPATITIS Bs ANTIGEN SCREEN P Negative (Negative)
[2019-03-26] MEDS: IPRATROPIUM/ALBUTEROL SULFATE 3 ML SOLUTION IH SCH ×4 (06:31→23:55)
[2019-03-26 07:42] LABS: BAND NEUTROPHILS % (MANUAL) 11 % (0-2); BASOPHILS % (MANUAL) 1 % (0-2); EOSINOPHILS % (MANUAL) 9 % (1-6); LYMPHOCYTES % (MANUAL) 9 % (22-44); MAN.DIFF COMMENT-IMPRESSION MANUAL DIFFERENTIAL; MONOCYTES % (MANUAL) 9 % (2-9); SEGMENTED NEUTROPHILS % 61 % (40-70)
[2019-03-26 07:43] LABS: PLATELET MORPHOLOGY COMMENT SLIGHTLY DECREASED
[2019-03-26] MEDS: FAMOTIDINE/PF 20 MG/2 ML VIAL IV SCH (08:46)
[2019-03-26] MEDS: LOSARTAN 100 MG TABLET PO SCH (09:00)
[2019-03-26] MEDS: ASPIRIN 81MG TAB.CHEW PO SCH (09:00)
[2019-03-26] MEDS: MEGESTROL 400 MG/10 ML UDCUP PO SCH (09:00)
[2019-03-26] MEDS: LABETALOL HCL 200 MG TABLET PO SCH ×2 (09:00→22:17)
[2019-03-26] MEDS: FOLIC ACID/VITAMIN B COMP W-C 1 MG CAP/TAB PO SCH (09:00)
[2019-03-26] MEDS ORDERED: LIDOCAINE HCL 1% MDV 50ML VIAL ONE (12:15)
[2019-03-26] MEDS ORDERED: IOHEXOL-350 50ML VIAL IV ONE (12:35)
--- NOTE | 2019-03-26 13:10 | NUR ---
PT UPDATE Pt s/p Dex cath insertion, condition stable, no bleeding or hematoma noted at this time, Nursing will continue to monitor.
[2019-03-26] MEDS: ACETAMINOPHEN 325 MG TAB PO PRN ×2 (13:34→22:24)
[2019-03-26] MEDS: CLOPIDOGREL BISULFATE 75 MG TAB PO SCH (16:24)
[2019-03-26] MEDS: MEROPENEM 500 MG VIAL IV SCH (16:24)
[2019-03-26] MEDS: ISOSORBIDE MONO 30MG TAB SR PO SCH (22:17)
[2019-03-27] VITALS (7 sets, daily range): BP systolic 96–135; BP diastolic 57–79
[2019-03-27] MEDS: IPRATROPIUM/ALBUTEROL SULFATE 3 ML SOLUTION IH SCH ×4 (05:00→23:27)
[2019-03-27] MEDS: LOSARTAN 100 MG TABLET PO SCH (10:00)
[2019-03-27] MEDS: FAMOTIDINE/PF 20 MG/2 ML VIAL IV SCH (10:00)
[2019-03-27] MEDS: LABETALOL HCL 200 MG TABLET PO SCH ×2 (10:00→20:33)
[2019-03-27] MEDS: FOLIC ACID/VITAMIN B COMP W-C 1 MG CAP/TAB PO SCH (10:01)
[2019-03-27] MEDS: MEGESTROL 400 MG/10 ML UDCUP PO SCH (10:01)
[2019-03-27] MEDS: ASPIRIN 81MG TAB.CHEW PO SCH (10:01)
[2019-03-27] MEDS: DAPTOMYCIN 500 MG in SODIUM CHLORIDE 0.9% 50 ML IV SCH (11:15)
--- NOTE | 2019-03-27 15:52 | NUR ---
RD NOTIFICATION DX: SEPSIS, UTI, ESRD ON HD, BRONCHITIS. DIET: RENAL DIALYSIS. LBM: 03/27 PER PT. PO INTAKE 100% AND HAS GREAT APPETITE PER PT. PT DID NOT LIKE BREAKFAST MEAL TODAY BUT DID ENJOY LUNCH. PT HAS RECEIVED RENAL DIALYSIS DIET AND NUTRITION EDUCATION IN THE PAST AND SEES A DIETITIAN AT THE DIALYSIS CLINIC THAT SHE CURRENTLY ATTENDS. PT TOLERATING FEEDINGS WELL [id number]. RD CONSULT DUE TO LOS X 5. PT TOLERATING WELL RD RECOMMENDS TO CONTINUE CURRENT DIET RD WILL FOLLOW UP NEEDED. THANK YOU. Addendum: 03/27/19 at [address] Amended: Links added.
--- NOTE | 2019-03-27 16:15 | NUR ---
CM Note: Spoke to Dr Jacobo CM spoke to Dr Jacobo regarding POC. At this time as per Dr Jacobo continue debtomycin iv, will most likely continue w/the same medical at [facility]. Wants to give order when pt closer to dc. Flagged [facility] form in the chart, pending MD recommendations. Primary nurse aware. CM to cont to follow up.
[2019-03-27] MEDS: CLOPIDOGREL BISULFATE 75 MG TAB PO SCH (17:15)
[2019-03-27] MEDS: ISOSORBIDE MONO 30MG TAB SR PO SCH (20:33)
[2019-03-28] VITALS (10 sets, daily range): BP systolic 102–154; BP diastolic 56–74
--- NOTE | 2019-03-28 02:50 | NUR ---
RECEIVED REPORT RECEIVED RECEIVED FROM ELIAN RAUSCH. TAKEN OVER PT CARE AT THIS TIME. NURSE'S ROUND DONE. PT FAIRLY ASLEEP WITH RESPIRATIONS EVEN AND UNLABORED. NO NOTED DISTRESS. KEPT UNDISTURBED FOR NOW. WILL MONITOR PT.
[2019-03-28 06:04] LABS: HEMATOCRIT 24.2 % (36-48); MEAN CORPUSCULAR HEMOGLOBIN 32.2 pg (27.0-33.0); MEAN CORPUSCULAR VOLUME 94.7 fL (79-99); PLATELET COUNT (AUTO) 183 K/uL (130-400); RED BLOOD CELL COUNT(AUTO) 2.56 MIL/uL (4.00-5.50); RED CELL DISTRIBUTION WIDTH 14.7 % (11.0-15.5)
[2019-03-28 06:19] LABS: INR 0.92 (0.85-1.15); PARTIAL THROMBOPLASTIN TIME 23.6 SEC (26.3-35.5); PROTHROMBIN TIME 9.7 SEC (9.6-11.6)
[2019-03-28] MEDS: IPRATROPIUM/ALBUTEROL SULFATE 3 ML SOLUTION IH SCH ×2 (06:20→10:55)
[2019-03-28 06:26] LABS: CREATININE 7.1 mg/dL (0.5-1.5); POTASSIUM 3.8 mmol/L (3.5-5.1)
[2019-03-28 07:39] LABS: EOSINOPHILS % (MANUAL) 2 % (1-6); LYMPHOCYTES % (MANUAL) 20 % (22-44); MAN.DIFF COMMENT-IMPRESSION MANUAL DIFFERENTIAL; MONOCYTES % (MANUAL) 3 % (2-9); SEGMENTED NEUTROPHILS % 75 % (40-70)
[2019-03-28 07:40] LABS: PLATELET MORPHOLOGY COMMENT ADEQUATE
--- NOTE | 2019-03-28 07:40 | NUR ---
REPORT PT RESTING WELL. NO CONCERNS VERBALIZED. HD TECH CONFIRMED PT'S SCHEDULE FOR HD TODAY. REPORT GIVEN TO INCOMING SHIFT, SHALOM PLUMMER. FOR MORE CARE AND MANAGEMENT.
[2019-03-28] MEDS: FAMOTIDINE/PF 20 MG/2 ML VIAL IV SCH (09:00)
[2019-03-28] MEDS: MEGESTROL 400 MG/10 ML UDCUP PO SCH (09:00)
[2019-03-28] MEDS: ASPIRIN 81MG TAB.CHEW PO SCH (09:00)
[2019-03-28] MEDS: FOLIC ACID/VITAMIN B COMP W-C 1 MG CAP/TAB PO SCH (09:00)
[2019-03-28] MEDS: LABETALOL HCL 200 MG TABLET PO SCH (09:00)
[2019-03-28] MEDS: LOSARTAN 100 MG TABLET PO SCH (09:00)
[2019-03-28] MEDS ORDERED: LIDOCAINE HCL 2% 20ML ONE (10:54)
[2019-03-28] MEDS ORDERED: SODIUM BICARB 50MEQ 50ML VIAL ONE (10:54)
[2019-03-28] MEDS ORDERED: MIDAZOLAM HCL 1 MG/ML 2ML VIAL ONE (11:14)
[2019-03-28] MEDS ORDERED: FENTANYL CITRATE PF 50 MCG/1 ML 2ML VIAL ONE (11:15)
--- NOTE | 2019-03-28 16:00 | NUR ---
S/P DIALYSIS ON AT 1252 OFF AT 1553, REMOVED 1 LITER, DURATION 3 HOURS BP 139/69 P 85 R 20 T 98.2. PATIENT AWARE IN ROOM DRESSING NOT CHANGE DUE TO PATIENT REQUEST.
[2019-03-28] MEDS: ACETAMINOPHEN 325 MG TAB PO PRN (16:50)
[2019-03-28] MEDS: CLOPIDOGREL BISULFATE 75 MG TAB PO SCH (16:50)
--- NOTE | 2019-03-28 17:00 | NUR ---
PATIENT DISCHARGE PENDING DAUGHTER ARRIVAL TO HOSPITAL , PATIENT WANTS DAUGHTER HERE FOR DISCHARGE INSTRUCTIONS
--- NOTE | 2019-03-28 19:00 | NUR ---
Patient given discharge instruction and verbalized understanding , iv removed with catheter intact and site dressed, medications reviewed with patient and follow-up appointment given no questions or concerns at this time patient transported via wheelchair to [facility] and left with daughter for home
== END 2019-03-28 18:55 | disposition home or self-care (01) | DRG 314 ==
LOC: EDH 12:17 → EDHIP 16:12 → 3BH 17:20 → 4CH 03-26 12:28
PROVIDERS: ADMIT Family Medicine; ATTEND Family Medicine
PROC: 5A1D70Z Performance of Urinary Filtration, Intermittent, Less than 6 Hours Per Day (ICD-10-PCS; 2019-03-23)
PROC: 0JPT3XZ Removal of Tunneled Vascular Access Device from Trunk Subcutaneous Tissue and Fascia, Percutaneous Approach (ICD-10-PCS; 2019-03-23)
PROC: 02PY33Z Removal of Infusion Device from Great Vessel, Percutaneous Approach (ICD-10-PCS; 2019-03-23)
PROC: 5A1D70Z Performance of Urinary Filtration, Intermittent, Less than 6 Hours Per Day (ICD-10-PCS; 2019-03-26)
PROC: B546ZZA Ultrasonography of Right Subclavian Vein, Guidance (ICD-10-PCS; 2019-03-26)
PROC: 05HY33Z Insertion of Infusion Device into Upper Vein, Percutaneous Approach (ICD-10-PCS; 2019-03-26)
PROC: 5A1D70Z Performance of Urinary Filtration, Intermittent, Less than 6 Hours Per Day (ICD-10-PCS; principal; 2019-03-28)
PROC: 0JH63XZ Insertion of Tunneled Vascular Access Device into Chest Subcutaneous Tissue and Fascia, Percutaneous Approach (ICD-10-PCS; 2019-03-28)
PROC: 02H633Z Insertion of Infusion Device into Right Atrium, Percutaneous Approach (ICD-10-PCS; 2019-03-28)
DX: T82.7XXA Infection and inflammatory reaction due to other cardiac and vascular devices, implants and grafts, initial encounter (principal); A41.01 Sepsis due to Methicillin susceptible Staphylococcus aureus; N18.6 End stage renal disease; N39.0 Urinary tract infection, site not specified; I12.0 Hypertensive chronic kidney disease with stage 5 chronic kidney disease or end stage renal disease; E87.1 Hypo-osmolality and hyponatremia; J40 Bronchitis, not specified as acute or chronic; E11.65 Type 2 diabetes mellitus with hyperglycemia; E11.22 Type 2 diabetes mellitus with diabetic chronic kidney disease; E87.8 Other disorders of electrolyte and fluid balance, not elsewhere classified; R74.8 Abnormal levels of other serum enzymes; D64.9 Anemia, unspecified; D69.6 Thrombocytopenia, unspecified; E78.2 Mixed hyperlipidemia; I25.10 Atherosclerotic heart disease of native coronary artery without angina pectoris; W18.30XA Fall on same level, unspecified, initial encounter; Y83.8 Other surgical procedures as the cause of abnormal reaction of the patient, or of later complication, without mention of misadventure at the time of the procedure; Y93.89 Activity, other specified; Z95.1 Presence of aortocoronary bypass graft; Z93.1 Gastrostomy status; Y92.009 Unspecified place in unspecified non-institutional (private) residence as the place of occurrence of the external cause; Y99.8 Other external cause status; Z83.3 Family history of diabetes mellitus; Z86.73 Personal history of transient ischemic attack (TIA), and cerebral infarction without residual deficits; Z99.2 Dependence on renal dialysis; Z88.8 Allergy status to other drugs, medicaments and biological substances; Z74.01 Bed confinement status
CPT/HCPCS: 36415; 36556; 36581; 36589; 71045; 71250; 72170; 73551; 74176; 77001; 80048; 80053; 80074; 81001; 82550; 82948; 83605; 83874; 84100; 84145; 84484; 85025; 85610; 85730; 86757; 87040; 87070; 87076; 87077; 87088; 87186; 87486; 87581; 87633; 87798; 87804; 90935; 92610; 93005; 93306; 93970; 94640; 94664; 97039; C1750; C1752; C1769; G0378; J0360; J0696; J0878; J1644; J2020; J2185; J2250; J3010; J3490; J7040; Q9967

== ENCOUNTER 2019-05-22 11:33 | Day surgery (SDC) | payer MEDICARE ==
[2019-05-20 10:08] VITALS: BP 150/90
[2019-05-20 10:10] LABS: BASOPHILS % (AUTO) 0.5 % (0.0-5.0); EOSINOPHILS % (AUTO) 5.2 % (0.0-8.0); HEMATOCRIT 29.9 % (36-48); LYMPHOCYTES % (AUTO) 9.9 % (21.0-51.0); MEAN CORPUSCULAR HEMOGLOBIN 31.7 pg (27.0-33.0); MEAN CORPUSCULAR HGB CONC 32.8 g/dL (32.0-36.0); MEAN CORPUSCULAR VOLUME 96.7 fL (79-99); MONOCYTES % (AUTO) 5.2 % (3.0-13.0); NEUTROPHILS % (AUTO) 79.2 % (40.0-77.0); PLATELET COUNT (AUTO) 219 K/uL (130-400); RED BLOOD CELL COUNT(AUTO) 3.09 MIL/uL (4.00-5.50); RED CELL DISTRIBUTION WIDTH 17.1 % (11.0-15.5); WHITE BLOOD COUNT (AUTO) 5.9 K/uL (4.8-10.8)
--- NOTE | 2019-05-20 10:45 | NUR ---
CLEARANCE/ALLERGY SPOKE TO MARY AT DR. CORONADO'S OFFICE. INFORMED ABOUT PT BEING ALLERGIC NOW TO ANCEF AND PT RECEIVING CARDIAC CLEARANCE FROM DR. NICE FOR PROCEDURE. SHE WILL INFORM DR. CORONADO OF PTS ALLERGY AND CALL ME WITH NEW RECORDS ADMINISTRATOR ANTIBIOTIC AND FAX CARDIAC CLEARANCE.
[2019-05-20 10:49] LABS: CREATININE 7.6 mg/dL (0.5-1.5); POTASSIUM 4.4 mmol/L (3.5-5.1)
--- NOTE | 2019-05-21 13:45 | NUR ---
LABS ABNORMAL LABS REPORTED TO DR CORNOADO MESSAGE LEFT WITH MARY, LABS FAXED TO DR. CORONADO PER THERE REQUEST, AWAITING FOR FURTHER ORDERS
--- NOTE | 2019-05-21 20:17 | NUR ---
1704 : PER MARY FROM DR. CORONADO'S OFFICE, NO NEW ORDERS OK TO PROCEED FOR PROCEDURE.
[~2019-05-22] VITALS: Ht 152.4 cm; Wt 56.9 kg
[2019-05-22] VITALS (12 sets, daily range): BP systolic 151–178; BP diastolic 79–93
[~2019-05-22 11:33] MED LIST changes: +BENZ-51 PO; +CLINDAMYCIN 600 MG/D5% WATER 50 ML IV SCH; +HYDR-3421 PO; -METO25TA6 PO; -MINO2.5T3 PO; -SEVE800T27 PO; +SEVE800T7 PO
[2019-05-22] MEDS ORDERED: SODIUM CHLORIDE 0.9% 1000ML 1,000 ML IV ONE (12:14)
[2019-05-22] MEDS ORDERED: ROPIVACAINE 0.5% 5MG/ML 30ML IJ ONE (12:47)
[2019-05-22] MEDS ORDERED: LIDOCAINE HCL-MPF 2% 10ML AMP IJ ONE ×2 (12:48)
[2019-05-22] MEDS ORDERED: MIDAZOLAM HCL 1 MG/ML 2ML VIAL ONE ×2 (12:59→13:45)
[2019-05-22] MEDS ORDERED: CLOP75TA14 PO (13:11)
[2019-05-22] MEDS ORDERED: BUPIVACAINE/PF 0.25% 30ML VIAL IJ ONE (13:15)
[2019-05-22] MEDS ORDERED: PAPAVERINE HCL 30 MG/ML 2ML VIAL ONE (13:15)
[2019-05-22] MEDS ORDERED: LIDOCAINE HCL 1% 20 ML VIAL ONE (13:15)
[2019-05-22] MEDS ORDERED: PROPOFOL 1000 MG/100 ML 100 ML IV ONE (13:48)
[2019-05-22] MEDS ORDERED: GLYCOPYRROLATE 1 MG/5 ML SYRINGE ONE (13:58)
[2019-05-22] MEDS ORDERED: FENTANYL CITRATE PF 50 MCG/1 ML 2ML VIAL ONE (14:18)
--- NOTE | 2019-05-22 15:26 | NUR ---
LEFT ARM WITH GOOD RADIAL PULSE. LEFT HAND WARM TO TACTILE AND GOOD CAPILLARY REFILL. Addendum: 05/22/19 at 1553 by GEORGIANA RAMACHANDRAN RN RN Amended: Links added.
--- NOTE | 2019-05-22 16:40 | NUR ---
CLARIFICATION CLARIFIED WITH DR. CORONADO TO WHEN TO RESUME PLAVIX AND ASPIRIN. PER DR. CORONADO, PT MAY RESUME PLAVIX AND ASPIRIN TOMORROW.
--- NOTE | 2019-05-22 17:25 | NUR ---
DISCHARGE PT DISCHARGED VIA WHEELCHAIR WITH DAUGHTER. PT STABLE. NO COMPLAINTS MADE. INCISION TO LEFT UPPER ARM INTACT, DERMABOND INTACT, NO OOZING NO SWELLING NO HEMATOMA NOTED, +BRUIT +THRILL. PT ABLE TO MOVE RIGHT ARM AND FINGERS, INSTRUCTED TO USE STRESS BALL DAILY PER DR. CORONADO ORDER. DISCHARGE INSTRUCTIONS GIVEN TO PT AND DAUGHTER, INSTRUCTED NOT TO USE LEFT ARM FOR ANY BP, BLOOD STICKS, ETC. BOTH VERBALIZED UNDERSTANDING.
== END 2019-05-22 17:25 | disposition home or self-care (01) ==
LOC: DAH 11:33
PROVIDERS: ATTEND Student in an Organized Health Care Education/Training Program
DX: I12.0 Hypertensive chronic kidney disease with stage 5 chronic kidney disease or end stage renal disease (principal); N18.6 End stage renal disease; I25.10 Atherosclerotic heart disease of native coronary artery without angina pectoris; Z79.899 Other long term (current) drug therapy; Z86.73 Personal history of transient ischemic attack (TIA), and cerebral infarction without residual deficits; Z79.82 Long term (current) use of aspirin; Z98.890 Other specified postprocedural states; Z88.1 Allergy status to other antibiotic agents; Z88.8 Allergy status to other drugs, medicaments and biological substances; Z88.0 Allergy status to penicillin; Z83.3 Family history of diabetes mellitus; Z82.49 Family history of ischemic heart disease and other diseases of the circulatory system
CPT/HCPCS: 36415 ×2; 36821; 80048; 82948; 84132; 85025; A4215; A4221; A4222; A4223; A4450; A4600; A4649; A4663; A4930; A6260; C1713 ×2; J1644; J2250 ×2; J2704; J2795; J3010; J3490 ×4; J7030; J2440

== ENCOUNTER 2019-10-01 11:51 | Inpatient (IN) | payer MEDICARE ==
[~2019-10-01] VITALS: Ht 154.9 cm; Wt 57.1 kg
[~2019-10-01 11:51] MED LIST changes: -CLINDAMYCIN 600 MG/D5% WATER 50 ML IV SCH; +CLOP75TA14 PO; -PANT40TA25 PO; +PANT40TA54 PO
[2019-10-01 12:51] LABS: BASOPHILS % (AUTO) 0.2 % (0.0-5.0); EOSINOPHILS % (AUTO) 0.1 % (0.0-8.0); HEMATOCRIT 36.8 % (36-48); LYMPHOCYTES % (AUTO) 3.3 % (21.0-51.0); MEAN CORPUSCULAR VOLUME 96.8 fL (79-99); MONOCYTES % (AUTO) 2.9 % (3.0-13.0); NEUTROPHILS % (AUTO) 92.1 % (40.0-77.0); NUCLEATED RED BLOOD CELLS 2.9 % (0.0-0.19); PLATELET COUNT (AUTO) 167 K/uL (130-400); RED CELL DISTRIBUTION WIDTH 18.3 % (11.0-15.5); WHITE BLOOD COUNT (AUTO) 22.8 K/uL (4.8-10.8)
[2019-10-01 13:10] LABS: ALBUMIN 3.3 g/dL (3.5-5.0); BILIRUBIN,TOTAL 2.4 mg/dL (0.2-1.0); TOTAL PROTEIN, SERUM 7.1 g/dL (6.0-8.3)
[2019-10-01 13:19] LABS: POTASSIUM 7.5 mmol/L (3.5-5.1)
[2019-10-01 13:20] LABS: CREATINE KINASE, TOTAL 405 U/L (21-232); CREATININE 10.7 mg/dL (0.5-1.5); LIPASE 111 U/L (114-286)
[2019-10-01] MEDS ORDERED: ALBUTEROL SULFATE 0.083% 2.5 MG/3 ML INH IH ONE (14:16)
[2019-10-01] MEDS ORDERED: SODIUM POLYSTYRENE SULFONATE 15 GM/60 ML ML ONE (14:23)
[2019-10-01] MEDS ORDERED: SODIUM BICARB 50MEQ 50ML VIAL ONE (14:24)
[2019-10-01] MEDS ORDERED: CALCIUM GLUCONATE 1 GM/10 ML VIAL IV ONE (14:24)
[2019-10-01] MEDS ORDERED: INSULIN HUMULIN R 100 UNIT/ML 3ML ONE (14:25)
[2019-10-01] MEDS ORDERED: DEXTROSE 50%-WATER 50 ML DISP.SYRIN IV ONE (14:25)
[2019-10-01] MEDS ORDERED: LEVOFLOXACIN 500 MG/D5W 100 ML 100 ML ONE (15:12)
[2019-10-01 15:17] LABS: INR 1.92 (0.85-1.15); PARTIAL THROMBOPLASTIN TIME 32.7 SEC (26.3-35.5); PROTHROMBIN TIME 20.2 SEC (9.6-11.6)
[2019-10-01] MEDS ORDERED: ONDANSETRON HCL 4 MG/2 ML VIAL ONE (18:05)
[2019-10-01] MEDS ORDERED: NOREPINEPHRINE BITARTRATE 1 MG/1 ML ML IV ONE (20:16)
[2019-10-01] MEDS ORDERED: NOREPINEPHRINE 4MG/NS 250ML IV SCH (20:30)
[2019-10-01] MEDS: ATORVASTATIN CALCIUM 20 MG TABLET PO SCH (21:00)
[2019-10-01] MEDS: FAMOTIDINE/PF 20 MG/2 ML VIAL IV SCH (21:00)
[2019-10-01] MEDS: INSULIN HUMULIN R 100 UNIT/ML 3ML SQ SCH (21:00)
[2019-10-01] MEDS: METOPROLOL TARTRATE 25 MG TAB PO SCH (21:00)
[2019-10-01] MEDS ORDERED: ASPIRIN 325MG EC TAB 325 MG TABLET.DR PO SCH (21:12)
[2019-10-01 22:14] LABS: CHOLESTEROL 122 mg/dL (<200); HDL CHOLESTEROL 79 mg/dL (35-85); LDL DIRECT 47 mg/dL (0-99); TRIGLYCERIDES 262 mg/dL (30-200)
[2019-10-01 22:15] LABS: HEMOGLOBIN A1C 5.6 % (4.0-6.0)
[2019-10-01] MEDS ORDERED: ASPIRIN 325 MG TABLET ONE (22:48)
[2019-10-01] MEDS ORDERED: FAMOTIDINE/PF 20 MG/2 ML VIAL IV ONE (22:49)
[2019-10-01] MEDS ORDERED: ATORVASTATIN CALCIUM 20 MG TABLET ONE (22:49)
[2019-10-02 03:47] LABS: BASOPHILS % (AUTO) 0.2 % (0.0-5.0); EOSINOPHILS % (AUTO) 0.3 % (0.0-8.0); HEMATOCRIT 35.4 % (36-48); LYMPHOCYTES % (AUTO) 4.3 % (21.0-51.0); MEAN CORPUSCULAR HEMOGLOBIN 29.7 pg (27.0-33.0); MEAN CORPUSCULAR HGB CONC 30.8 g/dL (32.0-36.0); MEAN CORPUSCULAR VOLUME 96.5 fL (79-99); MONOCYTES % (AUTO) 3.2 % (3.0-13.0); NEUTROPHILS % (AUTO) 90.7 % (40.0-77.0); NUCLEATED RED BLOOD CELLS 2.2 % (0.0-0.19); PLATELET COUNT (AUTO) 83 K/uL (130-400); RED BLOOD CELL COUNT(AUTO) 3.67 MIL/uL (4.00-5.50); RED CELL DISTRIBUTION WIDTH 18.2 % (11.0-15.5); WHITE BLOOD COUNT (AUTO) 20.9 K/uL (4.8-10.8)
[2019-10-02 03:58] LABS: CREATININE 6.2 mg/dL (0.5-1.5); POTASSIUM 4.8 mmol/L (3.5-5.1)
[2019-10-02 04:08] LABS: BILIRUBIN,TOTAL 3.1 mg/dL (0.2-1.0); MAGNESIUM 2.1 mg/dL (1.80-2.40); PHOSPHORUS 7.5 mg/dL (2.5-4.9); TOTAL PROTEIN, SERUM 6.3 g/dL (6.0-8.3)
[2019-10-02] MEDS: INSULIN HUMULIN R 100 UNIT/ML 3ML SQ SCH ×4 (07:30→21:00)
[2019-10-02] MEDS: FAMOTIDINE/PF 20 MG/2 ML VIAL IV SCH (09:00)
[2019-10-02] MEDS: METOPROLOL TARTRATE 25 MG TAB PO SCH ×2 (09:00→21:00)
[2019-10-02] MEDS: ENOXAPARIN SODIUM 30 MG/0.3 ML SQ SCH (09:00)
[2019-10-02] MEDS: ASPIRIN 81MG TAB.CHEW PO SCH (09:00)
[2019-10-02 09:44] LABS: INR 2.5 (0.85-1.15); PARTIAL THROMBOPLASTIN TIME 31.1 SEC (26.3-35.5); PROTHROMBIN TIME 26.1 SEC (9.6-11.6)
--- NOTE | 2019-10-02 10:06 | NUR ---
SW attempted to reach family at #s listed on face sheet. None of phone numbers for pt or family are working #s. Donte spoke to ER supervisor policy change clerksJairo who spoke to pt and pt stated that all #s on face were correct. Ground Crewman [employer] noted that pt seemed confused during conversation. Donte spoke to Juanis nurse in ER. Family has been calling in to check on pt. SW asked that staff try and get a contact # from family so we can call and complete assessment on pt.
[2019-10-02] MEDS ORDERED: CLOPIDOGREL BISULFATE 75 MG TAB ONE (10:17)
[2019-10-02] MEDS ORDERED: ASPIRIN 81MG TAB.CHEW ONE (10:18)
[2019-10-02] MEDS ORDERED: HEPARIN 25000 UNITS/250 ML D5W 250 ML IV ONE (10:18)
[2019-10-02] MEDS ORDERED: FAMOTIDINE/PF 20 MG/2 ML VIAL IV ONE ×2 (10:21→23:09)
[2019-10-02] MEDS ORDERED: PHARMACY COMMUNICATION MISC SCH (13:00)
[2019-10-02 13:01] LABS: INR 2.57 (0.85-1.15); PARTIAL THROMBOPLASTIN TIME 31.6 SEC (26.3-35.5); PROTHROMBIN TIME 26.8 SEC (9.6-11.6)
[2019-10-02] MEDS ORDERED: ONDANSETRON HCL 4 MG/2 ML VIAL ONE (16:29)
[2019-10-02] MEDS ORDERED: LEVOFLOXACIN 500 MG/D5W 100 ML 100 ML ONE (19:33)
[2019-10-02] MEDS ORDERED: COMPOUND IV MISC 1 EACH IVSOLN MISC PRN (19:45)
[2019-10-02] MEDS ORDERED: DAPTOMYCIN 500 MG in SODIUM CHLORIDE 0.9% 50 ML IV SCH (20:00)
[2019-10-02] MEDS: ATORVASTATIN CALCIUM 20 MG TABLET PO SCH (21:00)
[2019-10-02 21:43] LABS: BASOPHILS % (AUTO) 0.2 % (0.0-5.0); EOSINOPHILS % (AUTO) 0.1 % (0.0-8.0); HEMATOCRIT 36.4 % (36-48); LYMPHOCYTES % (AUTO) 6.4 % (21.0-51.0); MEAN CORPUSCULAR HEMOGLOBIN 29.8 pg (27.0-33.0); MONOCYTES % (AUTO) 4.1 % (3.0-13.0); NEUTROPHILS % (AUTO) 87.5 % (40.0-77.0); NUCLEATED RED BLOOD CELLS 1.9 % (0.0-0.19); PLATELET COUNT (AUTO) 59 K/uL (130-400); RED BLOOD CELL COUNT(AUTO) 3.79 MIL/uL (4.00-5.50); RED CELL DISTRIBUTION WIDTH 18.3 % (11.0-15.5); WHITE BLOOD COUNT (AUTO) 15.4 K/uL (4.8-10.8)
[2019-10-02 21:55] LABS: INR 2.06 (0.85-1.15); PARTIAL THROMBOPLASTIN TIME 30.8 SEC (26.3-35.5); PROTHROMBIN TIME 21.6 SEC (9.6-11.6)
[2019-10-02 22:23] LABS: PLATELET MORPHOLOGY COMMENT DECREASED
[2019-10-02] MEDS ORDERED: ATORVASTATIN CALCIUM 20 MG TABLET ONE (23:08)
[2019-10-02] MEDS ORDERED: METOPROLOL TARTRATE 25 MG TAB ONE (23:09)
[2019-10-03] VITALS (49 sets, daily range): BP systolic 88–161; BP diastolic 22–78
[2019-10-03] MEDS ORDERED: NOREPINEPHRINE 4MG/NS 250ML 250 ML IV ONE (01:05)
[2019-10-03] MEDS: INSULIN HUMULIN R 100 UNIT/ML 3ML SQ SCH ×4 (06:25→20:25)
[2019-10-03 08:09] LABS: HEPATITIS A ANTIBODY IGM Negative (Negative); HEPATITIS B CORE IGM Negative (Negative); HEPATITIS Bs ANTIGEN SCREEN P Negative (Negative)
[2019-10-03] MEDS: METOPROLOL TARTRATE 25 MG TAB PO SCH ×2 (08:23→20:01)
[2019-10-03] MEDS: ASPIRIN 81MG TAB.CHEW PO SCH (08:23)
[2019-10-03] MEDS: FAMOTIDINE/PF 20 MG/2 ML VIAL IV SCH (08:23)
[2019-10-03] MEDS: ENOXAPARIN SODIUM 30 MG/0.3 ML SQ SCH (08:39)
--- NOTE | 2019-10-03 13:00 | NUR ---
Lactic acid Reported to Dr. Meyers no new orders received he is aware and states it is trending down from her admission.
[2019-10-03 13:12] LABS: BASOPHILS % (AUTO) 0.3 % (0.0-5.0); EOSINOPHILS % (AUTO) 0.1 % (0.0-8.0); HEMATOCRIT 39.1 % (36-48); LYMPHOCYTES % (AUTO) 6.8 % (21.0-51.0); MEAN CORPUSCULAR HEMOGLOBIN 30.4 pg (27.0-33.0); MEAN CORPUSCULAR HGB CONC 30.7 g/dL (32.0-36.0); MONOCYTES % (AUTO) 4.3 % (3.0-13.0); NEUTROPHILS % (AUTO) 86.5 % (40.0-77.0); NUCLEATED RED BLOOD CELLS 2.1 % (0.0-0.19); PLATELET COUNT (AUTO) 64 K/uL (130-400); RED BLOOD CELL COUNT(AUTO) 3.95 MIL/uL (4.00-5.50); RED CELL DISTRIBUTION WIDTH 18.6 % (11.0-15.5); WHITE BLOOD COUNT (AUTO) 19.1 K/uL (4.8-10.8)
[2019-10-03 13:30] LABS: ALBUMIN 2.8 g/dL (3.5-5.0); BILIRUBIN,TOTAL 2.1 mg/dL (0.2-1.0); CREATININE 7.7 mg/dL (0.5-1.5); POTASSIUM 5.3 mmol/L (3.5-5.1); TOTAL PROTEIN, SERUM 5.8 g/dL (6.0-8.3)
[2019-10-03] MEDS ORDERED: SODIUM CHLORIDE 0.9% 250 ML IV ONE (13:38)
[2019-10-03] MEDS: MIDODRINE HCL 5 MG TABLET PO SCH ×2 (14:59→20:00)
[2019-10-03] MEDS ORDERED: ALBUMIN (HUMAN) 25% 200 ML IV SCH (15:30)
--- NOTE | 2019-10-03 15:36 | NUR ---
INITIAL SW spoke to patient's daughter, Ilsa Ortiz, . Another emergency contact is son, Andrae Casarez Jr, . No home services. Dialysis: [facility] [place] at 10am. Family helps with transportation. DME: walker with seat, BPM, shower chair. As per daughter, patient was able to complete ADL's independently but did not drive. PCP is Dr. Trev Peoples. Pharmacy is [facility] located on [facility] in [place]. DCP is home. Addendum: 10/03/19 at 1539 by SHALOM MAN Amended: Links added.
--- NOTE | 2019-10-03 15:39 | NUR ---
EMERGENCY CONTACTS Ilsa Ortiz, daughter Andrae Hermelindo Davalos, son, Ishan Ortiz, son in law
[2019-10-03] MEDS ORDERED: LEVOFLOXACIN 500 MG/D5W 100 ML 100 ML IV SCH (16:00)
[2019-10-04] VITALS (20 sets, daily range): BP systolic 83–156; BP diastolic 27–119
[2019-10-04 04:59] LABS: BASOPHILS % (AUTO) 0.2 % (0.0-5.0); EOSINOPHILS % (AUTO) 0.4 % (0.0-8.0); HEMATOCRIT 32.4 % (36-48); LYMPHOCYTES % (AUTO) 3.7 % (21.0-51.0); MEAN CORPUSCULAR HEMOGLOBIN 30.7 pg (27.0-33.0); MEAN CORPUSCULAR HGB CONC 29.9 g/dL (32.0-36.0); MEAN CORPUSCULAR VOLUME 102.5 fL (79-99); MONOCYTES % (AUTO) 5.7 % (3.0-13.0); NEUTROPHILS % (AUTO) 87.4 % (40.0-77.0); NUCLEATED RED BLOOD CELLS 3.2 % (0.0-0.19); PLATELET COUNT (AUTO) 55 K/uL (130-400); RED BLOOD CELL COUNT(AUTO) 3.16 MIL/uL (4.00-5.50); RED CELL DISTRIBUTION WIDTH 19.5 % (11.0-15.5); WHITE BLOOD COUNT (AUTO) 23.2 K/uL (4.8-10.8)
[2019-10-04] MEDS: INSULIN HUMULIN R 100 UNIT/ML 3ML SQ SCH (05:27)
[2019-10-04] MEDS ORDERED: DEXTROSE 50%-WATER 50 ML DISP.SYRIN IV ONE (05:29)
[2019-10-04 05:32] LABS: ALBUMIN 3.5 g/dL (3.5-5.0); BILIRUBIN,TOTAL 3.5 mg/dL (0.2-1.0); CREATININE 4.6 mg/dL (0.5-1.5); POTASSIUM 5.4 mmol/L (3.5-5.1); TOTAL PROTEIN, SERUM 6.5 g/dL (6.0-8.3)
[2019-10-04] MEDS: FAMOTIDINE/PF 20 MG/2 ML VIAL IV SCH (08:04)
[2019-10-04] MEDS: MIDODRINE HCL 5 MG TABLET PO SCH (08:04)
[2019-10-04] MEDS: ASPIRIN 81MG TAB.CHEW PO SCH (08:05)
--- NOTE | 2019-10-04 08:30 | NUR ---
alla Kentwas able to reach daughter Ilsa Ortiz, and inform of alla ordonez. Daughter also informed that pt's son Andrae Casarez Jr, son, had called in and was made aware. Sw met son Andrae at the ER lobby and escorted him to private room for Dr Brasher to meet with him and inform son of pt's . Pt's daughter and son's arrived shortly after and they were able to talk to Dr Brasher as well. Family was escorted to see pt by pt's nurse. Daughter states pt had a plan and will contact pile driving supervisor with the home information. SW provided emotional support.
--- NOTE | 2019-10-04 08:45 | NUR ---
PT PRONOUNCED AFTER CODING SINCE 0808 AM. SPO2 DECREASED. PT PLACED ON NON REBREATHER. BP/HR DROPPED AND CODE WAS STARTED WHEN HR WENT DOWN TO 45. WITH PT UNRESPONSIVE. SEE CODE SHEET
--- NOTE | 2019-10-04 11:00 | NUR ---
FAMILY GOWNED UP AND WERE ABLE TO BE WITH PATIENT POST MORTEM
--- NOTE | 2019-10-04 11:10 | NUR ---
BELONGINGS INCLUDING CLOTHING, CELL PHONE, AND EARRINGS GIVEN DOUBLE BAGGED TO DAUGHTER. INSTRUCTED DAUGHTER TO WASH CLOTHING ITEMS SEPARATELY
--- NOTE | 2019-10-04 11:20 | NUR ---
f/u call SW called son and daughter to make sure they got home ok and provide contact # if f/u info needed. Provided emotional support
== END 2019-10-04 08:41 | disposition expired | DRG 871 ==
LOC: EDH 11:51 → EDHIP 15:25 → 2CH 10-03 01:02
PROVIDERS: ADMIT Hospitalist; ATTEND Hospitalist
PROC: 5A1D70Z Performance of Urinary Filtration, Intermittent, Less than 6 Hours Per Day (ICD-10-PCS; 2019-10-01)
PROC: 30233K1 Transfusion of Nonautologous Frozen Plasma into Peripheral Vein, Percutaneous Approach (ICD-10-PCS; 2019-10-02)
PROC: 30233R1 Transfusion of Nonautologous Platelets into Peripheral Vein, Percutaneous Approach (ICD-10-PCS; 2019-10-02)
PROC: 06HY33Z Insertion of Infusion Device into Lower Vein, Percutaneous Approach (ICD-10-PCS; principal; 2019-10-03)
PROC: 5A1D70Z Performance of Urinary Filtration, Intermittent, Less than 6 Hours Per Day (ICD-10-PCS; 2019-10-03)
PROC: 5A1935Z Respiratory Ventilation, Less than 24 Consecutive Hours (ICD-10-PCS; 2019-10-04)
PROC: 0BH17EZ Insertion of Endotracheal Airway into Trachea, Via Natural or Artificial Opening (ICD-10-PCS; 2019-10-04)
DX: A41.9 Sepsis, unspecified organism (principal); I21.4 Non-ST elevation (NSTEMI) myocardial infarction; K72.00 Acute and subacute hepatic failure without coma; N18.6 End stage renal disease; R65.21 Severe sepsis with septic shock; D65 Disseminated intravascular coagulation [defibrination syndrome]; I33.0 Acute and subacute infective endocarditis; I50.31 Acute diastolic (congestive) heart failure; E87.1 Hypo-osmolality and hyponatremia; I42.9 Cardiomyopathy, unspecified; E87.2 Acidosis; I13.2 Hypertensive heart and chronic kidney disease with heart failure and with stage 5 chronic kidney disease, or end stage renal disease; J98.11 Atelectasis; J96.10 Chronic respiratory failure, unspecified whether with hypoxia or hypercapnia; E87.5 Hyperkalemia; B96.89 Other specified bacterial agents as the cause of diseases classified elsewhere; D63.8 Anemia in other chronic diseases classified elsewhere; E11.22 Type 2 diabetes mellitus with diabetic chronic kidney disease; E78.5 Hyperlipidemia, unspecified; E83.41 Hypermagnesemia; I25.10 Atherosclerotic heart disease of native coronary artery without angina pectoris; I46.9 Cardiac arrest, cause unspecified; I35.8 Other nonrheumatic aortic valve disorders; I25.2 Old myocardial infarction; Z79.82 Long term (current) use of aspirin; Z79.899 Other long term (current) drug therapy; Z88.9 Allergy status to unspecified drugs, medicaments and biological substances; Z90.710 Acquired absence of both cervix and uterus; Z95.1 Presence of aortocoronary bypass graft; Z99.2 Dependence on renal dialysis; Z86.73 Personal history of transient ischemic attack (TIA), and cerebral infarction without residual deficits; Z03.818 Encounter for observation for suspected exposure to other biological agents ruled out; Z86.2 Personal history of diseases of the blood and blood-forming organs and certain disorders involving the immune mechanism; Z87.01 Personal history of pneumonia (recurrent); Z86.14 Personal history of Methicillin resistant Staphylococcus aureus infection; Z83.3 Family history of diabetes mellitus; Z82.49 Family history of ischemic heart disease and other diseases of the circulatory system
CPT/HCPCS: 31500; 36415; 36430; 71045; 76705; 80053; 80061; 80074; 82270; 82435; 82550; 82803; 82947; 82948; 83036; 83605; 83690; 83735; 83880; 84100; 84132; 84295; 84484; 85018; 85025; 85610; 85730; 86850; 86900; 86901; 86927; 87040; 87077; 87186; 87633; 87635; 90935; 93005; 93306; 93356; 94002; 94640; A6250; G0378; J0610; J0878; J1644; J1650; J1815; J1956; J2405; J3490; J7050; J7070; P9017; P9034; P9046